=== PATIENT | female | born 1945 | race Caucasian/White ===

== ENCOUNTER 2022-07-03 09:06 | Day surgery (SDC) | payer MEDICARE, OTHER, SELFPAY ==
--- NOTE | 2022-06-29 14:00 | PT.OPEX ---
PT [place] Outpatient Eval PT [facility] Outpatient Eval Start: 06/29/22 13:00 Freq: Status: Active Protocol: Document 06/29/22 13:00 JASON (Rec: 06/29/22 13:17 JASON [id number]) E-signed By Dave Saucedo PT Physical Therapy Outpatient Evaluation Insurance Information Insurance Name Medicare B Medical Diagnosis Left knee OA Treating Diagnosis Left knee pain Referring MD Hammond Subjective Subjective Pt. reports having progressive left knee dysfunction from OA changes. She had her right hip replaced in January and has done well living indpe. at the [facility] in [facility]. She has an elevator to get to her one level home with everything including bedroom and laundry on same level. She ambulates without assistive device currently but it has gotten harder to walk any distance due to stiffness and pain. PMH includes right ERICA and HTN. Pain Comments 03/02 Date of Last Physician Visit 05/04/22 Current Work Status Retired Preferred Name Chris Precautions Therapy Limitations/Systems Review Not Limited Objective Range of Motion Full left knee ROM with 4/5 quad strength Swelling Mild left knee Balance & Gait Ambulation without device with mild limp Assessment Assessment/Impression Objectively, pt. demonstrates; good left knee AROM equal to right; 4/5 quad strength; mild limp during ambulation; 6/10 pain left knee during ambulation with generalized pain but also lateral thigh/ knee/leg pain; and core and general deconditioning. She would benefit from skilled therapy for one pre-op visit for education and instruction in post-operative protocol exercises along with post-op rehab per protocol working on restoring normal gait without assistive device. Primary Functional Limitations walking, squatting Plan of Care Rehabilitation Potential Excellent Physical Therapy Goals 1. Pt. will be indep. with HEP for self maintenance in 8 weeks. 2. Pt. will be able to walk without assistive device in 8 weeks. 3. Pt. will demonstrate improved quad and core strength in 8 weeks. 4. Pt. will demonstrate functional knee AROM to allow regular ADL's in 8 weeks. Coordination/Communication With Referral Source Treatment Plan/Direct Interventions Gait Training,Ice/Cold/ Vasopneumatic,Joint Mobilization,Manual Therapy, Neuromuscular Re-ed,Self-Care/ Home Management,Therapeutic Activities,Therapeutic Exercises Frequency/Duration 1 pre-op visit then 2 times a week after post-op re-eval on 07/10/22. Patient Will Be Discharged From Therapy Independent w/HEP, Independently Progressing Evaluation Billing Complexity Low Certification Information Initial Certification Date 06/29/22 Ending Certification Date 09/21/22 Provider Signature Shows Agreement With POC & Medical Necessity Physician Signature & Date Requested Please Sign/Date Here Physician Comment/Change : Physician NPI Number #
[2022-07-03] VITALS (23 sets, daily range): BP systolic 69–131; BP diastolic 49–69; PULSE 56–97; RESP 16–18; TEMP 36–37.5; O2SAT 94–100; BMI 2968.5
[2022-07-03] MEDS: LACTATED RINGERS 1000 ML 1,000 ML 100 ML IV (10:00)
[2022-07-03] MEDS: ACETAMINOPHEN 500 MG TABLET 1000 MG PO ×3 (10:00→21:47)
[2022-07-03] MEDS: OXYCODONE (CR) 10 MG TAB.ER.12H PO (10:00)
[2022-07-03] MEDS: CELECOXIB 200 MG CAPSULE PO ×2 (10:00→21:40)
[2022-07-03] MEDS: MIDAZOLAM HCL 1 MG/ML inj IVP (10:21)
[2022-07-03] MEDS: fentaNYL 100 MCG/2 ML inj IVP (10:21)
--- NOTE | 2022-07-03 10:54 | SUR.PREOP ---
TIME?OUT:?1020 PT/RN/MDA?VERIFICATION?OF?SURGICAL?SITE,?PROCEDURE,?AND?CONSENT OBTAINED?PRIOR?TO?INVASIVE?PROCEDURE.
[2022-07-03] MEDS: CEFAZOLIN 2 GM INJ IVP (10:58)
--- NOTE | 2022-07-03 11:12 | W.PM.NB ---
Nerve Block Nerve Block Date Seen: 07/03/22 Type of block requested by surgeon for post-operative analgesia: adductor canal Side: left Time out performed: Yes Verification of patient name: Yes Verification of date of : Yes Site marking: site marked Name of person performing procedure: Morteza Continuous monitoring Was continuous monitoring of O2 sat, B/P, machine tailer, recorded every 15 minutes?: Yes Procedure Checklist: sterile prep, needles and gloves Ultrasound guided. Images saved: Yes Medications given in 5ml increments after negative aspiration: Ropivicaine %: 0.5 mL: 20 Needle gauge: 20 Decadron (mg): 10 Precedex (mcg): 25 Patient tolerated procedure well: Yes Additional comments: Needle noted adjacent to nerve Block Charges Block Charge (with Pro Fee): Femoral Nerve Use of Ultrasound Machine for Block: Yes- US Guidance/pain block
--- NOTE | 2022-07-03 11:12 | W.PM.NB ---
Nerve Block Nerve Block Date Seen: 07/03/22 Type of block requested by surgeon for post-operative analgesia: geniculars Side: left Time out performed: Yes Verification of patient name: Yes Verification of date of : Yes Site marking: site marked Name of person performing procedure: Morteza Continuous monitoring Was continuous monitoring of O2 sat, B/P, traffic monitor specialist, recorded every 15 minutes?: Yes Procedure Checklist: sterile prep, needles and gloves Medications given in 5ml increments after negative aspiration: Ropivicaine %: 0.5 mL: 9 Needle gauge: 25 Patient tolerated procedure well: Yes Block Charges Block Charge (with Pro Fee): Genicular Nerve Block Use of Ultrasound Machine for Block: No
--- NOTE | 2022-07-03 11:57 | CRLHL7_ITS ---
For Patients: As a result of the Cures Act, medical imaging exams and procedure reports are released immediately into your electronic medical record. You may view this report before your referring provider. If you have questions, please contact your health care provider. INDICATION: Postoperative knee arthroplasty TECHNIQUE: Knee radiograph 2 views left COMPARISON: None FINDINGS: Bone: No acute fractures or aggressive bone lesions are identified. Joint: The patient is status post a total knee arthroplasty with patellar resurfacing. No significant knee effusion is seen. Soft tissue: Anterior skin, subcutaneous gas and joint gas are present from recent surgery. No radiopaque foreign bodies are seen. IMPRESSION: 1. There is an unremarkable postoperative appearance of the knee arthroplasty. Dictated by: Balwinder Womack MD @ 07/03/2022 13:43:48 (Electronically Signed)
--- NOTE | 2022-07-03 11:59 | PM.ORPRC ---
Procedure Note Date of procedure: 07/03/22 Procedure: SURGEON: Doug Hammond MD DISTRICT MANAGER: Lauryn Torres PA-C PREOPERATIVE DIAGNOSIS: Left knee osteoarthritis POSTOPERATIVE DIAGNOSIS: Left knee osteoarthritis NAME OF OPERATION: Left total knee arthroplasty ANESTHESIA: Spinal ESTIMATED BLOOD LOSS: 0 mL COMPLICATIONS: None SPECIMENS: None DRAINS: None PREOPERATIVE ANTIBIOTICS: Ancef 1 g IMPLANTS: 1. J&J Attune # 5 posterior stabilized femur 2. #4 fixed-bearing tibia 3. # 5 posterior stabilized, 5 mm fixed-bearing polyethylene 4. 38 patella INDICATIONS: The patient is a 77-year-old female with a longstanding history of severe, unrelenting left knee pain secondary to end-stage (grade IV) left knee osteoarthritis. Despite appropriate nonoperative management, including activity modification, anti-inflammatories, yijy-who-azubeiv pain medication, bracing, physical therapy, and injections they continue to have pain and disability. Operative intervention was offered. The risks, benefits and expected outcomes were discussed in detail. These included but were not limited to: Infection, bleeding, injury to blood vessel or nerve, venous thromboembolism. All questions were answered to their satisfaction. Use of an assistant executive housekeeper was necessary throughout the case for patient positioning and safety, soft tissue retraction, and closure. PROCEDURE: Spinal anesthesia was administered. The patient was placed supine on the operating table. The assistant executive housekeeper made sure the patient was positioned appropriately. The lower extremity was prepped and draped in the usual sterile fashion. The limb was exsanguinated with the Munir bandage. The pneumatic tourniquet was inflated to 300 mmHg. A standard anterior incision was made with the knee in flexion. Subcutaneous dissection was sharply taken through fascial layer #1. Full-thickness medial and lateral flaps were elevated. The assistant executive housekeeper retracted the soft tissues and protected them throughout the case. A standard medial parapatellar approach was made. The patella was everted. The infrapatellar fat pad was preserved. The menisci and cruciate ligaments were sharply d?brided. Marginal osteophytes were d?brided with the rongeur. The drill was used to penetrate the femoral canal. The canal was aspirated and irrigated with pulse lavage. The intramedullary femoral guide was placed for a 5-degree valgus cut, removing 10 mm off the distal femur. The saw was used to make the cut. Whitesides line and the trans epicondylar axis were marked. The femoral sizing guide was pinned onto the distal femur. Three degrees of external rotation nicely parallels the transepicondylar axis. Pins were placed for posterior referencing. The four-in-one cutting guide was pinned onto the distal femur. The anterior, posterior, and chamfer cuts were made. The assistant executive housekeeper protected the collateral ligaments. The box cutting guide was pinned. The box cuts were made. The boxed trial was placed and was an excellent fit. Drill holes for the lugs were made. Attention was then turned to the proximal tibia. The extramedullary tibial guide was placed for a neutral varus/valgus cut with 5 degrees of posterior slope, removing 1 mm based off the medial tibial surface. The assistant executive housekeeper protected the collateral ligaments and the neurovascular bundle. The saw was used to make the cut. Trial components were placed. The knee was nicely balanced in both flexion and extension. The trial components were removed. The tray was placed in appropriate rotation, parallel to our tibial cutting pins. It was pinned by the assistant executive housekeeper and the drill and the punch were used. The tray was removed. The punch was used again. We placed a bone plug in the femoral canal. Attention was then turned to the patella. [place] patellar thickness was 21 mm. The lobster claw resection guide was used with the 7.5 mm lili and the, guide used as an extra lili. The saw was used to make the cut. Drill holes were made by the assistant executive housekeeper. The trial was placed and was an excellent fit. Cancellous surfaces were irrigated with pulse lavage and thoroughly dried by the assistant executive housekeeper. We cemented the tibial component, then the femoral component. A trial spacer was placed. The knee was brought into full extension. We then cemented the patellar component. Excessive cement was removed. The cement was allowed to harden. We impacted the 5 mm polyethylene onto the tibial tray. The knee was taken through a range of motion and was found to be nicely balanced in both flexion and extension. The patella tracks centrally. The assistant executive housekeeper did a three minute dilute Betadine solution soak. The assistant executive housekeeper irrigated the wound with 3 liters of normal saline via pulse lavage. The assistant executive housekeeper reapproximated the extensor mechanism with #1 Vicryl in an interrupted cnyped-[id number] fashion. The assistant executive housekeeper then ran the extensor mechanism with a #1 PDO Stratafix. The assistant executive housekeeper closed the subcutaneous tissues with a 3-0 Stratafix and the skin with a running 3-0 Stratafix in a subcuticular fashion. Glue was used to seal the skin. The assistant executive housekeeper placed a dry dressing, ALESSANDRO stocking, and Polar Care. Sponge and needle counts were correct x2. The patient tolerated the procedure well. There were no apparent complications. They were carefully transferred to the hospital bed and taken to the postanesthesia care unit in satisfactory condition. PLAN: The patient will be mobilized with physical therapy. Aspirin will be used for DVT prophylaxis. They will be discharged to home once medically appropriate.
--- NOTE | 2022-07-03 12:51 | W.ANESCHARGE ---
Anesthesia Charges Start Date/Time Anesthesia Start Date: 07/03/22 Anesthesia Start Time: 10:42 Stop Date/Time Anesthesia Stop Date: 07/03/22 Anesthesia Stop Time: 12:48 Summary Emergency: No Extremes of Age: Over 70-CPT 29445
--- NOTE | 2022-07-03 13:17 | W.ANESCHARGE ---
Anesthesia Charges Start Date/Time Anesthesia Start Date: 07/03/22 Anesthesia Start Time: 10:42 Stop Date/Time Anesthesia Stop Date: 07/03/22 Anesthesia Stop Time: 12:48 Summary Emergency: No Extremes of Age: Over 70-CPT 80785
[2022-07-03] MEDS: LACTATED RINGERS 1000 ML 1,000 ML 75 ML IV (14:20)
--- NOTE | 2022-07-03 15:19 | PC.NURSE ---
Pt arrived to M/S room 257 s/p RTKA with Dr. Hammond via hospital bed with 2 assist at 1330. Settled by Fina Pantoja RN. Please see initial assessment from PACU and frequent post op VS. Adv. to regular diet. Bed alarm engaged. Dr. Aburto notified of low bp readings on arrival to floor. Report to Shannan Cummings RN for evening shift.
[2022-07-03 16:23] LABS: Sodium* 133 mmol/L (135-149)
[2022-07-03] MEDS: CEFAZOLIN 1 GM in 0.9 % SODIUM CHLORIDE Mini-bag 100 ML IVPB (18:11)
[2022-07-03] MEDS: OXYCODONE 5 MG TABLET PO ×2 (18:55→21:47)
--- NOTE | 2022-07-03 19:36 | PM.IMCN1 ---
Date of Consult Patient: Other ([place]) Consult date: 07/03/22 Requesting Physician: Orthopedics Primary Care Provider: Not a Local Provider, ELIANA Angulo, ChB Consult Narrative Reason for consult: Postoperative management of medical conditions Narrative: Chris Dean is a 77 year old woman with end-stage left gonarthrosis presents for elective total knee arthroplasty, which is undertaken successfully today without any complications. Underwent elective right total hip arthroplasty previously and tolerated well. No complications. Review of Systems Status of ROS: Reports: 10 or more systems reviewed and unremarkable except as noted in History and below Narrative: Up until recently has been fairly active. Enjoys outdoor activities in winter spring summer and fall. Has had to curtail her outdoor activities significantly over the last while due to her hip pain for which she underwent of right hip arthroplasty and then subsequently due to left knee pain. Attempted non operative interventions without success. Elected to proceed with total knee arthroplasty at this time. Denies angina, anginal equivalent, syncope, near syncope, nausea, vomiting, palpitations, diaphoresis, dyspnea at rest, paroxysmal nocturnal dyspnea, orthopnea. Denies claudication symptoms. States bowel and bladder function are satisfactory. No focal motor neurologic deficits. No recent trauma or injury. No recent travel. No recent fevers, rigors, diaphoresis. No recent illness. [facility] Medical History Chronic kidney disease Encounter for screening for severe acute respiratory syndrome coronavirus 2 (SARS-CoV-2) infection GERD (gastroesophageal reflux disease) Hyperlipidemia Hypertension Hypothyroidism Osteoarthritis of left knee Osteoarthritis of lumbar spine Synovial cyst of popliteal space [Gonzalez], left knee Tear of lateral meniscus of left knee Tear of medial meniscus of left knee Surgical History History of intraocular lens implant (~01/2021) Status post right hip replacement (02/08/22) Family History Brother History of open heart surgery High blood pressure Depression Sister High blood pressure Osteoarthritis Mother High blood pressure Osteoarthritis Father CHF (congestive heart failure) Social History Smoking Status: Never smoker Do you use any of these nicotine containing products: None How often do you have a drink containing alcohol: never AUDIT-C Alcohol total score: 0 Non-prescribed substance use: denies use Caffeine: Yes (coffee, 2 cup/day) Meds Home Medications and Allergies Home Medications Medication Instructions Recorded Confirmed Type acetaminophen 500 mg tablet 500 mg PO Q6H PRN 05/02/22 07/02/22 History amlodipine 5 mg tablet 5 mg PO DAILY 05/02/22 07/02/22 History atorvastatin 20 mg tablet 20 mg PO HS 05/02/22 07/02/22 History famotidine 10 mg tablet 10 mg PO BID 05/02/22 07/02/22 History hydrochlorothiazide 50 mg tablet 50 mg PO DAILY 05/02/22 07/02/22 History levothyroxine 75 mcg tablet 75 mcg PO DAILY 05/02/22 07/02/22 History losartan 100 mg tablet 100 mg PO HS 05/02/22 07/02/22 History polyvinyl alcohol-povidone (PF) 1 drp ophthalmic (eye) BID 05/02/22 07/02/22 History 1.4 %-0.6 % eye drops in a dropperette cholecalciferol (vitamin D3) 25 1,000 unit PO DAILY 07/02/22 07/02/22 History mcg (1,000 unit) capsule ibuprofen 200 mg capsule 600 mg PO Q6H PRN 07/02/22 07/02/22 History Allergies Allergy/AdvReac Type Severity Reaction Status Date / Time brimonidine Allergy Unknown Verified 05/02/22 09:25 Exam Narrative: Exam Narrative: No acute distress. Appears comfortable. Alert, oriented to self, place, time, situation. Friendly, articulate, cooperative. Mood and affect are congruent. Vision and hearing are grossly normal. Neck is supple, midline trachea, normal thyroid. No JVD, hepatojugular reflux, or carotid bruits. No lymphadenopathy. Lungs clear to auscultation without wheezing, rhonchi, or rales. Heart tones with regular rhythm, normal S1-S2, without murmur, gallop, or rub. Abdomen with active bowel sounds, soft, nontender. Moves all extremities already. No edema. Capillary refills less than 3 seconds. Skin is warm, dry, intact. Const: Vital Signs, click to edit/add: Vital Signs - 24 hr 07/03/22 10:00 07/03/22 10:20 07/03/22 10:25 Temperature 99.5 F Pulse Rate 70 59 L 62 Pulse Rate [Right Pulse Oximeter] Respiratory Rate 16 16 16 Blood Pressure 115/66 131/68 120/66 Blood Pressure [Ri ght Arm] Pulse Oximetry 99 100 100 Oxygen Delivery Me thod Room Air Nasal Cannula Nasal Cannula Oxygen Flow Rate 2 2 07/03/22 12:48 07/03/22 12:57 07/03/22 13:04 Temperature Pulse Rate 65 62 58 L Pulse Rate [Right Pulse Oximeter] Respiratory Rate 16 16 16 Blood Pressure 101/65 92/56 L 98/62 Blood Pressure [Ri ght Arm] Pulse Oximetry 96 95 100 Oxygen Delivery Me thod Room Air Room Air Room Air Oxygen Flow Rate 07/03/22 13:10 07/03/22 13:15 07/03/22 13:20 Temperature 97.2 F L Pulse Rate 60 61 58 L Pulse Rate [Right Pulse Oximeter] Respiratory Rate 16 16 16 Blood Pressure 110/67 99/64 99/67 Blood Pressure [Ri ght Arm] Pulse Oximetry 100 100 97 Oxygen Delivery Me thod Room Air Room Air Room Air Oxygen Flow Rate 2 2 2 07/03/22 13:24 07/03/22 13:35 07/03/22 13:45 Temperature 96.8 F L Pulse Rate 57 L 67 Pulse Rate [Right Pulse Oximeter] 97 Respiratory Rate 16 18 Blood Pressure 110/62 Blood Pressure [Ri ght Arm] 98/61 69/49 L Pulse Oximetry 97 Oxygen Delivery Me thod Room Air Room Air Room Air Oxygen Flow Rate 2 07/03/22 14:00 07/03/22 14:15 07/03/22 14:30 Temperature 96.8 F L Pulse Rate Pulse Rate [Right Pulse Oximeter] 56 L 58 L 62 Respiratory Rate 16 16 16 Blood Pressure Blood Pressure [Ri ght Arm] 89/60 L 105/69 113/54 L Pulse Oximetry 97 100 Oxygen Delivery Me thod Room Air Room Air Room Air Oxygen Flow Rate 07/03/22 16:08 Temperature 97.6 F Pulse Rate Pulse Rate [Right Pulse Oximeter] Respiratory Rate Blood Pressure Blood Pressure [Ri ght Arm] Pulse Oximetry Oxygen Delivery Me thod Oxygen Flow Rate Documenting provider has reviewed patient's vital signs: yes Labs Labs: BMP 07/03/22 16:03 Sodium 133 L Assessment and Plan Assessment and plan (1) Osteoarthritis of left knee: Status: Acute (2) Status post left knee replacement: Status: Acute (3) Hypertension: Status: Acute (4) Hyperlipidemia: Status: Acute (5) Hypothyroidism: Status: Acute Plan 1. Reviewed impression with patient. 2. Answered her questions. 3. Hold off on her antihypertension medications for now. 4. Agree with perioperative antibiotic prophylaxis. 5. Agree with postoperative venous thromboembolism prophylaxis. 6. Continue with other supportive interventions for hyperlipidemia and hypothyroidism. 7. Will follow with Orthopedic surgery as long as she is in the hospital. Should all go well with her efforts with physical and occupational therapy then I see no reason why she cannot be discharged home tomorrow if appropriate. 8. Patient agreeable to above stated plans and recommendations.
[2022-07-03] MEDS: ASPIRIN 81 MG TABLET EC PO (21:41)
[2022-07-03] MEDS: FAMOTIDINE 20 MG TABLET 10 MG PO (21:41)
[2022-07-03] MEDS: CARBOXYMETHYLCELLULOSE (REFRESH PLUS) TEARS 1 DROP EYE-BOTH (21:42)
--- NOTE | 2022-07-04 00:16 | PC.NURSE ---
Patient's dressing to left knee appears clean dry and intact. Cry-cuff is in place - Plexipulses on. Patient's pain managed with oxycodone PRN. Patient is hesitant to take this medication. Patient educated on the importance of pain management during her recovery. Tolerating a regular diet. Up to the BR with Assist of 1, walker and gait belt.
[2022-07-04 00:40] VITALS: BP 124/56; PULSE 67; RESP 14; TEMP 36.3; O2SAT 97
[2022-07-04] MEDS: CEFAZOLIN 1 GM in 0.9 % SODIUM CHLORIDE Mini-bag 100 ML IVPB ×2 (00:57→09:25)
[2022-07-04] MEDS: OXYCODONE 5 MG TABLET PO ×2 (03:40→11:34)
[2022-07-04 05:00] VITALS: BP 118/56; PULSE 66; RESP 16; TEMP 36.5; O2SAT 95
[2022-07-04] MEDS: LACTATED RINGERS 1000 ML 1,000 ML 75 ML IV (05:00)
[2022-07-04] MEDS: LEVOTHYROXINE 75 MCG TABLET PO (06:42)
--- NOTE | 2022-07-04 06:57 | PC.NURSE ---
END OF SHIFT NOTE: PT PLEASANT AND COOPERATIVE WITH CARES. VSS ON RA; AFEBRILE. PT AMBULATES WITH WALKER, GB, A1/SBA. LEFT KNEE DRESSING CDI. PT TOLERATING MOVEMENT WELL. PT ADMINISTERED PRN OXYCODONE FOR LEFT KNEE PAIN. OXY WAS EFFECTIVE. PT ORAL INTAKE ADEQUATE. VOIDING WELL. CRYO CUFF TO LEFT KNEE.
[2022-07-04 07:41] LABS: Basophils Percent Auto 0.1 % (0.0-3.0); Hematocrit 29.3 % (33.0-51.0); Immature Granulocytes Abs Auto 0.05 K/uL (0.00-0.30); Mean Corpuscular HGB Conc 34 gm/dL (32-36); Mean Corpuscular Hemoglobin 30 pg (26-34); Mean Corpuscular Volume 88 fL (80-100); Monocytes Percent Auto 8.8 % (0.0-11.0); Neutrophils Percent Auto 82.8 % (42.0-72.0); Platelet Count* 332 K/uL (140-440); RDW Coefficient of Variation % 12.5 % (11.5-15.5); Red Blood Count 3.34 m/uL (4.00-5.20); White Blood Count* 17.64 K/uL (4.50-11.00)
[2022-07-04 07:50] VITALS: BP 125/71; PULSE 66; RESP 16; TEMP 36.3; O2SAT 95
[2022-07-04 08:01] LABS: Potassium* 3.4 mmol/L (3.6-5.1); Sodium* 127 mmol/L (135-149)
[2022-07-04 08:02] LABS: Slide Review Reflex No
[2022-07-04 08:04] LABS: Creatinine* 0.6 mg/dL (0.5-1.5); Est. Creatinine Clearance* 49.76; Estimated Glomerular Filt Rate 92 ml/min; INR 1.08 (0.91-1.10); Prothrombin Time 14.4 Seconds
[2022-07-04 08:05] LABS: Blood Urea Nitrogen* 21 mg/dL (7-30)
--- NOTE | 2022-07-04 09:12 | PM.ORPN ---
Subjective Subjective Time Seen by Provider: 07:50 Date Seen: 07/04/22 Principal diagnosis: Left total knee arthroplasty Interval history: Margo is doing well this morning is comfortable at rest post knee replacement. She will discharge to home. She lives alone, however is very independent. She went home after her hip replacement and did well. Ortho Exam Narrative Exam Narrative: Alert and oriented x3. Patient is in no acute distress. Converses without labored breathing. Hearing is grossly intact. Examination of the left knee shows the dressing is intact. Mild soft tissue edema about the left knee. Bilateral calves are soft and nontender. CMS is intact left lower extremity. Able to easily flex and extend the knee in bed. She has good quad control. Const Vital Signs, click to edit/add: Vital Signs - 24 hr 07/03/22 10:00 07/03/22 10:20 07/03/22 10:25 Temperature 99.5 F Pulse Rate 70 59 L 62 Pulse Rate [Right Pulse Oximeter] Respiratory Rate 16 16 16 Blood Pressure 115/66 131/68 120/66 Blood Pressure [Right Arm] Pulse Oximetry 99 100 100 Oxygen Delivery Method Room Air Nasal Cannula Nasal Cannula Oxygen Flow Rate 2 2 07/03/22 12:48 07/03/22 12:57 07/03/22 13:04 Temperature Pulse Rate 65 62 58 L Pulse Rate [Right Pulse Oximeter] Respiratory Rate 16 16 16 Blood Pressure 101/65 92/56 L 98/62 Blood Pressure [Right Arm] Pulse Oximetry 96 95 100 Oxygen Delivery Method Room Air Room Air Room Air Oxygen Flow Rate 07/03/22 13:10 07/03/22 13:15 07/03/22 13:20 Temperature 97.2 F L Pulse Rate 60 61 58 L Pulse Rate [Right Pulse Oximeter] Respiratory Rate 16 16 16 Blood Pressure 110/67 99/64 99/67 Blood Pressure [Right Arm] Pulse Oximetry 100 100 97 Oxygen Delivery Method Room Air Room Air Room Air Oxygen Flow Rate 2 2 2 07/03/22 13:24 07/03/22 13:35 07/03/22 13:45 Temperature 96.8 F L Pulse Rate 57 L 67 Pulse Rate [Right Pulse Oximeter] 97 Respiratory Rate 16 18 Blood Pressure 110/62 Blood Pressure [Right Arm] 98/61 69/49 L Pulse Oximetry 97 Oxygen Delivery Method Room Air Room Air Room Air Oxygen Flow Rate 2 07/03/22 14:00 07/03/22 14:15 07/03/22 14:30 Temperature 96.8 F L Pulse Rate Pulse Rate [Right Pulse Oximeter] 56 L 58 L 62 Respiratory Rate 16 16 16 Blood Pressure Blood Pressure [Right Arm] 89/60 L 105/69 113/54 L Pulse Oximetry 97 100 Oxygen Delivery Method Room Air Room Air Room Air Oxygen Flow Rate 07/03/22 16:08 07/03/22 15:00 07/03/22 15:30 Temperature 97.6 F Pulse Rate Pulse Rate [Right Pulse Oximeter] 60 61 Respiratory Rate 16 16 Blood Pressure Blood Pressure [Right Arm] 121/59 L 113/61 Pulse Oximetry 99 99 Oxygen Delivery Method Room Air Room Air Oxygen Flow Rate 07/03/22 16:00 07/03/22 17:00 07/03/22 18:00 Temperature 97.6 F Pulse Rate Pulse Rate [Right Pulse Oximeter] 62 72 62 Respiratory Rate 16 16 16 Blood Pressure Blood Pressure [Right Arm] 96/57 L 114/58 L 107/56 L Pulse Oximetry 100 99 98 Oxygen Delivery Method Room Air Room Air Room Air Oxygen Flow Rate 07/03/22 19:00 07/03/22 20:00 07/04/22 00:40 Temperature Pulse Rate Pulse Rate [Right Pulse Oximeter] 71 70 67 Respiratory Rate 16 16 14 Blood Pressure Blood Pressure [Right Arm] 102/54 L 107/62 Pulse Oximetry 97 94 Oxygen Delivery Method Room Air Room Air Oxygen Flow Rate 07/04/22 00:40 07/04/22 05:00 Temperature 97.3 F L 97.7 F Pulse Rate Pulse Rate [Right Pulse Oximeter] 67 66 Respiratory Rate 14 16 Blood Pressure Blood Pressure [Right Arm] 124/56 L 118/56 L Pulse Oximetry 97 95 Oxygen Delivery Method Room Air Room Air Oxygen Flow Rate Assessment and Plan Assessment and plan (1) Osteoarthritis of left knee: Status: Acute (2) Status post left knee replacement: Problem details: Date of surgery 07/04/2022 Status: Acute Assessment and Plan: Plan for discharge is today to home if they meet discharge criteria. DVT prophylaxis includes aspirin 81 mg twice daily x1 month, Petr stockings x1 month may remove for 1 hr per day, frequent ambulation Remove dressing in 1 week. Observe wound and phone Orthopedics with any questions or concerns Return to clinic in 1 week for a wound check Return to clinic in [address] Hammond Minimize narcotic use. Wean off and discontinue soon as possible. Activities as tolerated. No strenuous activity. Outpatient physical therapy as scheduled. Ice and elevate the operative extremity. No restriction on ice. Margo needs no prescriptions from Orthopedics. She states she has oxycodone left over from her hip replacement. She has aspirin 81 mg and will take that twice a day for a month as we discussed. She also has Tylenol and senna at home. (3) Hypertension: Status: Acute (4) Hyperlipidemia: Status: Acute (5) Hypothyroidism: Status: Acute
[2022-07-04] MEDS: FAMOTIDINE 20 MG TABLET 10 MG PO (09:23)
[2022-07-04] MEDS: ASPIRIN 81 MG TABLET EC PO (09:24)
[2022-07-04] MEDS: SENNOSIDES 1 TAB TABLET 2 TAB PO (09:24)
[2022-07-04] MEDS: CELECOXIB 200 MG CAPSULE PO (09:24)
--- NOTE | 2022-07-04 09:52 | PC.SOCIAL ---
Met with pt in room. Pt states that she has assistance from a niece, neighbor, and friends at home while she is recovering. Pt states that she stocked up on all of her necessities and put everything within reach at home. Pt states that her home is all on one level so she is able to get around easily. Informed pt that she may reach out to the social work department at the [facility] if she is in need of more services.
[2022-07-04] MEDS: ACETAMINOPHEN 500 MG TABLET 1000 MG PO (10:31)
--- NOTE | 2022-07-04 13:19 | PC.NURSE ---
Pt eval by OT, PT, Alex TAMEZ and myself. Pt is impulsive and anxious to go home. Please see eMar for medications provided on day shift. Adequate I and O. Pt d/c instructions provided by Shannan Frias RN. Pt verbalized understanding of d/c diagnosis, home meds, pain management plan, f/up appts and sx to report urgently to MD. Discharged via w/c to own home with friend as transportation at 12:56 pm.
== END 2022-07-04 12:56 | disposition home or self-care (01) ==
LOC: OR 13:08 → MEDSURG 13:39
PROVIDERS: Visit Provider Orthopaedic Surgery
PROC: (CPT 27447; principal; 2022-07-03 11:00)
DX: M17.12 Unilateral primary osteoarthritis, left knee (principal); I12.9 Hypertensive chronic kidney disease with stage 1 through stage 4 chronic kidney disease, or unspecified chronic kidney disease; N18.9 Chronic kidney disease, unspecified; K21.9 Gastro-esophageal reflux disease without esophagitis; Z96.641 Presence of right artificial hip joint; E03.9 Hypothyroidism, unspecified; E78.5 Hyperlipidemia, unspecified
CPT/HCPCS: 27447; 01402; 36415; 64447; 64454; 73560; 76942; 82565; 84132; 84295; 84520; 85025; 85610; 97110; 97116; 97161; 97165; 97535; 99100; A9270; C1776; J0690; J1100; J2250; J2370; J2704; J2795; J3010; J7120

== ENCOUNTER 2022-07-19 13:00 | Outpatient (RCR) | payer MEDICARE, OTHER, SELFPAY ==
--- NOTE | 2022-07-10 15:01 | PT.OPEX ---
PT [place] Outpatient Eval PT [facility] Outpatient Eval Start: 07/10/22 14:09 Freq: Status: Active Protocol: Document 06/29/22 14:13 JASON (Rec: 07/10/22 14:48 JASON [id number]) E-signed By Dave Saucedo PT Physical Therapy Outpatient Evaluation Insurance Information Insurance Name Medicare B Medical Diagnosis Left knee OA Treating Diagnosis Left knee pain Referring MD Hammond Subjective Subjective Pt. reports having progressive left knee dysfunction from OA changes. She had her right hip replaced in January and has done well living indep at the [facility] in [facility]. She has an elevator to get to her one level home with everything including laundry and bedroom on same level. She ambulates without assistive device currently but it has gotten harder to walk any distance due to stiffness and pain. PMH includes right ERICA and HTN. Pain Comments 6 Date of Last Physician Visit 05/04/22 Date of Surgery (If applicable) 07/03/22 Current Work Status Retired Objective Range of Motion Full left knee ROM with 4/5 quad strength Strength 4/5 quad strength Swelling Mild left knee Balance & Gait Ambulation without device with mild limp Assessment Assessment/Impression Objectively, pt. demonstrates; good left knee AROM equal to right side; 4/5 quad strength; mild limp during ambulation; 6/10 pain left knee during ambulation with generalized pain but also lateral thigh/ knee/leg pain; and core deconditioning. She would benefit from skilled therapy for one pre-op visit for education and instruction in post-operative protocol exercises along with post-op protocol working on restoring normal gait without assistive device. Primary Functional Limitations walking, squatting Plan of Care Rehabilitation Potential Excellent Physical Therapy Goals 1. Pt. will be indep. with HEP for self maintenance in 8 weeks. 2. Pt. will be able to walk without a limp in 8 weeks. 3. Pt. will demonstrate improved quad and core strength in 8 weeks. 4. Pt. will demonstrate functional knee AROM to allow regular ADL's in 8 weeks. Coordination/Communication With Referral Source Treatment Plan/Direct Interventions Gait Training,Ice/Cold/ Vasopneumatic,Joint Mobilization,Manual Therapy, Neuromuscular Re-ed,Self-Care/ Home Management,Therapeutic Activities,Therapeutic Exercises Frequency/Duration 1 pre-op visit then 2 times a week after post-op re-eval on 07/10/22. Patient Will Be Discharged From Therapy Independent w/HEP, Independently Progressing Evaluation Billing Complexity Low Certification Information Initial Certification Date 06/29/22 Ending Certification Date 09/21/22 Provider Signature Shows Agreement With POC & Medical Necessity Physician Signature & Date Requested Please Sign/Date Here Physician Comment/Change : Physician NPI Number #
== END 2022-10-26 14:30 | disposition home or self-care (01) ==
PROVIDERS: Visit Provider Orthopaedic Surgery
DX: M17.12 Unilateral primary osteoarthritis, left knee (principal); Z51.89 Encounter for other specified aftercare
CPT/HCPCS: 97110; 97161; 97164; 97535

== ENCOUNTER 2022-12-04 10:40 | Outpatient (CLI) | payer MEDICARE, OTHER, SELFPAY | END 2022-12-04 10:41 | disposition home or self-care (01) | LOC: INJ CL 10:41 | PROVIDERS: PCP Orthopaedic Surgery; Visit Provider Family Medicine | DX: M54.16 Radiculopathy, lumbar region (principal); M51.36 Other intervertebral disc degeneration, lumbar region | CPT/HCPCS: 62323; J0702; Q9966 ==

== ENCOUNTER 2022-12-31 07:30 | Outpatient (RCR) | payer MEDICARE, OTHER, SELFPAY ==
--- NOTE | 2022-10-26 16:56 | PT.OPEX ---
PT [place] Outpatient Eval PT [facility] Outpatient Eval Start: 10/26/22 15:35 Freq: Status: Active Protocol: Document 10/26/22 15:35 KEV (Rec: 10/26/22 15:38 KEV [id number]) E-signed By Gaby Hickman DPT Physical Therapy Outpatient Evaluation Insurance Information Recert Due Date 01/24/23 Insurance Name Medicare B Medical Diagnosis lumbar DDD Treating Diagnosis LBP, core/hip/glut weakness, limited tolerance for extended sitting/standing/walking Subjective Subjective Patient reports LBP for the last 2-3 months. Reports onset last Jul when she was bending over and she felt a pop in her LB. Ongoing pain since. Reports dx of osteopenia. Recent xrays showed severe OA in her back. Patient was given a packet of handouts from her MD at [facility] to perform for her back. She has them with her today and reports they are going well, she is getting them in regularly. Sleep has been ok. Pain/sx are worst in the morning. States she wakes up stiff, tight, and sore with pain up to 8/10. Once she is up moving around, pain/sx decrease. Pain range 2-8/10. She is using tylenol 2x/day. Icy/hot ointment 1-2x/day. States she is using the heating pad all the time. Patient reports hx of R ERICA last January and L TKA last Jun ( 2021). She is going to the pool for an exercise group 2x/ week, walking regularly, doing yoga. Patient stays very active. She is hoping to review her current exercises and get few PT treatments with plan of continuing with her home program. Date of Last Physician Visit 10/22/22 Precautions Treatment Precautions/Contraindications s/p R ERICA January 2022, s/p L TKA Jun 2022 Assessment Assessment/Impression Patient is a 77 year old female with LBP, core/hip/glut weakness, limited tolerance for extended sitting/standing/ walking. Pain range 2-8/10. Trunk ROM is WFL. Patient is able to demonstrate many of her current home exercises and has a packet of pictures she is already doing in her home program. She c/o tightness, stiffness, pain in the mornings. This tends to loosen up with movement, exercise, activity, time. Patient with hx of R ERICA last January and L TKA last Jun (2021). She is scheduled to see Dr Degroot for a consult next week. Patient would benefit from skilled PT for pain/sx management, posture/body mechanics training, core/hip/ glut strengthening, and establishment of HEP. Plan of Care Rehabilitation Potential Good Physical Therapy Goals 1. Decrease LBP to less than/ equal to 4/10 with daily activities and with the progression of PT activities over the next 4-6 weeks. 2. Patient will be educated on posture/body mechanics and pain management strategies over the next 4-6 weeks for decreased stress on LB, improved spinal stabilization, and decreased LBP. 3. Improve core/hip/glut strength and posture over the next 8-10 weeks for improved posture, decreased stress on LB, improved spinal stabilization, and decreased LBP. 4. Patient will be I with HEP within 8-10 weeks for progression toward above goals, ongoing self management of pain/sx, ongoing self improvements in core/hip/glut strength, posture/body mechanics, and for improved tolerance for daily activities and extended sitting/standing /walking. Coordination/Communication With Referral Source Treatment Plan/Direct Interventions Manual Therapy,Therapeutic Exercises Frequency/Duration 1x/week Patient Will Be Discharged From Therapy Completion of LTG(s),Skills Plateau,Independent w/HEP, Independently Progressing Evaluation Billing Untimed Code Treatment Minutes 20 Complexity Moderate Certification Information Initial Certification Date 10/26/22 Ending Certification Date 01/24/23 Provider Signature Shows Agreement With POC & Medical Necessity Physician Signature & Date Requested Please Sign/Date Here Physician Comment/Change : Physician NPI Number #
== END 2023-04-11 23:59 | disposition home or self-care (01) ==
PROVIDERS: PCP Orthopaedic Surgery; Visit Provider Physician Assistant Surgical
DX: M51.36 Other intervertebral disc degeneration, lumbar region (principal); Z51.89 Encounter for other specified aftercare
CPT/HCPCS: 97110; 97140; 97162

== ENCOUNTER 2023-06-04 12:23 | Outpatient (CLI) | payer MEDICARE, OTHER, SELFPAY | END 2023-06-04 12:24 | disposition home or self-care (01) | LOC: INJ CL 12:25 | PROVIDERS: Visit Provider Family Medicine | DX: M51.36 Other intervertebral disc degeneration, lumbar region (principal); M54.16 Radiculopathy, lumbar region | CPT/HCPCS: 62323; J0702; Q9966 ==

== ENCOUNTER 2023-11-08 14:17 | Outpatient (CLI) | payer MEDICARE, OTHER, SELFPAY | END 2023-11-08 14:18 | disposition home or self-care (01) | LOC: INJ CL 14:18 | PROVIDERS: PCP Internal Medicine; Visit Provider Family Medicine | DX: M51.36 Other intervertebral disc degeneration, lumbar region (principal); M54.16 Radiculopathy, lumbar region | CPT/HCPCS: 62323; J0702; Q9966 ==

== ENCOUNTER 2025-02-24 08:53 | Outpatient (CLI) | payer MEDICARE, OTHER, SELFPAY ==
--- NOTE | 2025-02-24 09:15 | MR_ITS ---
EXAM: MRI of the RIGHT KNEE, without contrast CLINICAL: Right knee pain. Evaluate for medial meniscal tear. COMPARISONS: X-rays 01/25/2025. TECHNICAL: Multiplanar multisequence MRI of the right knee was obtained. SEDATION: None. CONTRAST: None. FINDINGS: Ligaments: ACL: Intact and unremarkable. PCL: Intact and unremarkable. MCL: Intact and unremarkable. LCL: Intact and unremarkable. Posterolateral corner: Popliteus, biceps femoris, iliotibial band, and the popliteofibular ligament appear intact. Posteromedial corner: Semimembranosus, pes anserine tendons and posterior oblique ligament appear intact. Extensor mechanism: Patellar tendon: Intact, without tendinopathy. Quadriceps tendon: Intact, without tendinopathy. Retinacula: Medial and lateral retinacula are intact. Fat pads: Unremarkable infrapatellar Hoffa's, quadriceps and prefemoral fat pads. Patellofemoral joint: Patella: There is full-thickness chondral loss involving the medial patellar facet and patellar median ridge with adjacent subchondral reactive marrow edema. Deep chondral fissuring and small segment of deep chondral delamination involves the lateral patellar facet on axial series 4 image 12 with adjacent subchondral reactive marrow edema. Trochlea: There is grade 2-3 chondral loss involving the medial trochlea. Medial compartment: Medial meniscus: There is horizontal dominant complex tearing throughout the posterior horn extending into the posterior root with complex tearing also seen to extend into the body segment on sagittal series 6 images 18-23 and coronal series 8 image 17-20. There is mild displacement of torn meniscal tissue along the peripheral undersurface of the body segment on coronal series 8 image 17-18. Medial cartilage: There is high-grade/full-thickness loss involving the weightbearing medial femoral condyle on coronal series 8 images 15-17. Small segment of high-grade chondral loss with adjacent focal osteophyte formation involving the posterior nonweightbearing medial femoral condyle on sagittal series 6 image 22. Medial tibial plateau cartilage is maintained. Lateral compartment: Lateral meniscus: There is mild ill-defined fraying/tearing involving the free edge of the posterior horn extending into the junction with the body on sagittal series 6 images 10-11. No meniscal displacement. Lateral cartilage: No significant chondromalacia. Knee joint: Effusion: Physiologic right knee effusion. Intra-articular bodies:?No convincing bodies identified. Popliteal cyst: Very small. Bones: There is minimal reactive marrow edema involving the peripheral posterior medial plateau adjacent to the medial meniscus. No evidence of acute fracture. IMPRESSION: 1. Tearing of the medial meniscus as above with displacement of torn meniscal tissue along the peripheral undersurface of the body segment. 2. Mild ill-defined fraying/tearing involving the free edge of the posterior horn extending into the junction with the body segment lateral meniscus. 3. Chondral loss involving the patellofemoral compartment and medial femoral condyle as above. 4. No evidence of ligamentous injury or fracture. JCZ Electronically signed on 02/24/2025 10:42:00 AM by Giovanny Kearney D.O.
== END 2025-02-24 08:54 | disposition home or self-care (01) ==
LOC: MRI 08:56
PROVIDERS: PCP Internal Medicine; Visit Provider Orthopaedic Surgery
DX: M25.561 Pain in right knee (principal); S83.221A Peripheral tear of medial meniscus, current injury, right knee, initial encounter; S83.281A Other tear of lateral meniscus, current injury, right knee, initial encounter
CPT/HCPCS: 73721

== ENCOUNTER 2025-03-02 07:44 | Outpatient (CLI) | payer MEDICARE, OTHER, SELFPAY | END 2025-03-02 07:45 | disposition home or self-care (01) | LOC: INJ CL 07:45 | PROVIDERS: PCP Internal Medicine; Visit Provider Family Medicine | DX: M54.16 Radiculopathy, lumbar region (principal); M51.369 Other intervertebral disc degeneration, lumbar region without mention of lumbar back pain or lower extremity pain | CPT/HCPCS: 62323; J0702; Q9966 ==

== ENCOUNTER 2025-03-22 11:49 | Outpatient (CLI) | payer MEDICARE, OTHER, SELFPAY ==
--- OUTSIDE RECORDS SUMMARY | 2021-02-08 09:00 | XMS_ITS | Encounter Summary ---
Author Organization [facility] Address [address] [place] [address] Care Team Providers Care Title I Teacher Name Role Phone Lui Matamoros M.D. Primary Care Provider [phone] Reason for Referral * Outpatient (Routine) - Closed Specialty Diagnoses / Procedures Referred By Contac t Referred To Contact Diagnoses Varicose Vein Lower Extremity Left Procedures US Endovenous Ablation Giovanny Gomez M.D. Phone: tel: fax[facility] Region Referral ID Status Reason Start Date Expiration Date Visits Re quested Visits Authorized [id number] Closed 01/19/2021 01/19/2022 1 1 Reason for Visit * Outpatient (Routine) - Closed Specialty Diagnoses / Procedures Referred By Contac t Referred To Contact Diagnoses Varicose Vein Lower Extremity Left Procedures US Endovenous Ablation Giovanny Gomez M.D. Phone: tel: fax: [facility] Region Referral ID Status Reason Start Date Expiration Date Visits Re quested Visits Authorized [id number] Closed 01/19/2021 01/19/2022 1 1 Encounter Details Date Type Department Care Team (Latest Contact Info) Description 02/08/2021 9:00 AM CDT Hospital Encounter Department of Radiology in [place], [place] [address] [place] [phone] [place] [phone] Varicose Vein Lower Extremity Left Social History Tobacco Use Types Packs/Day Years Used Date Smoking Tobacco: Never Smokeless Tobacco: Never Comments:Second hand smoke a s a child Alcohol Use Standard Drinks/Week Comments Yes 0 (1 standard drink = 0.6 oz pure alcohol) About once every 2-3 months may have a glass of wine. [facility] Utilities Answer Date Recorded In the past 12 months has e [place], gas, oil, or water [email or web address] threatened to shut off services in your home? No 03/11/2025 Humiliation, Afraid, Rape, and Kick questionnair e Answer Date Recorded Within the last year, have y ou been afraid of your partner or ex-partner? No 03/16/2025 Within the last year, have y ou been humiliated or emotionally abused in other ways by your partner or ex-partner? No Within the last year, have y ou been kicked, hit, slapped, or otherwise physically hurt by your partner or ex-partner? No 03/16/2025 Within the last year, have y ou been raped or forced to have any kind of sexual activity by your partner or ex-partner? No 03/16/2025 Hunger Vital Sign Answer Date Recorded Within the past 12 months, y ou worried that your food would run out before you got the money to buy more. Never true 03/11/20 25 Within the past 12 months, t he food you bought just didn't last and you didn't have money to get more. Never true 03/11/2025 PRAPARE - Transportation Answer Date Re corded In the past 12 months, has l ack of transportation kept you from medical appointments or from getting medications? No 02/21 In the past 12 months, has l ack of transportation kept you from meetings, work, or from getting things needed for daily living? No 03/11/2025 Housing Stability Answer Date Recorded What is your living situation today? I have a [facility] place to live 03/11/2025 Education Answer Date Recorded What is the highest level of school you have completed or the highest degree you have received? Bachelor's degree (e.g., BA, AB, BS) 04/25/2019 Comments No Sex and Gender Information Value Date Recorded Sex Assigned at Female 07/27/2017 6:11 AM CDT Legal Sex Female 10:24 AM CDT Gender Identity Female 07/27/2017 6:11 AM CDT Sexual Orientation Straight 07/27/2017 6: 11 AM CDT documented as of this encounter Functional Status * Q1: How often do you have a drink containing alcohol? 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 [address] [phone] 04/30/2025 11:00 AM CDT Nurse Only Department of Family Medicine, [facility], in [address] [phone] Marianela Keita M.D. [address] [place] [phone] 06/07/2025 1:00 PM CDT Ancillary Procedure Department of Ophthalmology in [place], [place] [address] [place] [phone] Hamlet Espinoza M.D. [address] [place] [phone] documented as of this encounter Procedures Procedure Name Priority Date/Time Associated Diagnosis Comments US ENDOVENOUS ABLATION RAD - Routine (most inpatients and all outpatients) 02/08/2021 10:02 AM CDT Varicose Vein Lower Extremity Left documented in this encounter Results * US Endovenous Ablation (02/08/2021 10:02 AM CDT) Narrative [address] - 02/08/2021 10:03 AM CDT This exam does not require a radiologist review or interpretation. Please refer to the patient's medical record on this date for clinical details. us Giovanny Gomez M.D. 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 NPAmarjit: [phone] PCP - General Internal Medicine 01/21/20 03/08/21 documented as of this encounter
--- OUTSIDE RECORDS SUMMARY | 2025-03-09 09:56 | XMS_ITS | Encounter Summary ---
Author Organization [facility] Address [address] [place] [address] Care Team Providers Care Ambulance Driver Name Role Phone Marianela Keita M.D. Primary Care Provider [phone] Encounter Details Date Type Department Care Team (Latest Contact Info) Description 03/09/2025 9:56 AM CDT - 03/09/2025 11:59 PM CDT Hospital Encounter Department of Laboratory Medicine in [place], [place] [address] [place] [phone] Marianela Keita M.D. [address] [place] [phone] Hypertensive Chronic Kidney Disease With Stage 1 Through Stage 4 Chronic Kidney Disease, Or Unspecified Chronic Kidney Disease; Hyperlipidemia; Hypothyroidism On Replacement Discharge Disposition: Home or Self Care Social History Tobacco Use Types Packs/Day Years Used Date Smoking Tobacco: Never Smokeless Tobacco: Never Comments:Second hand smoke a s a child Alcohol Use Standard Drinks/Week Comments Yes 0 (1 standard drink = 0.6 oz pure alcohol) About once every 2-3 months may have a glass of wine. [facility] Utilities Answer Date Recorded In the past 12 months has e [employer], gas, oil, or water [employer] threatened to shut off services in your home? No 03/09/2025 Humiliation, Afraid, Rape, and Kick questionnair e Answer Date Recorded Within the last year, have y ou been afraid of your partner or ex-partner? No 03/16/2024 Within the last year, have y ou been humiliated or emotionally abused in other ways by your partner or ex-partner? No Within the last year, have y ou been kicked, hit, slapped, or otherwise physically hurt by your partner or ex-partner? No 03/16/2024 Within the last year, have y ou been raped or forced to have any kind of sexual activity by your partner or ex-partner? No 03/16/2024 Hunger Vital Sign Answer Date Recorded Within the past 12 months, y ou worried that your food would run out before you got the money to buy more. Never true 03/09/20 25 Within the past 12 months, t he food you bought just didn't last and you didn't have money to get more. Never true 03/09/2025 PRAPARE - Transportation Answer Date Re corded In the past 12 months, has l ack of transportation kept you from medical appointments or from getting medications? No 02/21 In the past 12 months, has l ack of transportation kept you from meetings, work, or from getting things needed for daily living? No 03/09/2025 Housing Stability Answer Date Recorded What is your living situation today? I have a [facility] place to live 03/09/2025 Education Answer Date Recorded What is the [...] AM CDT documented as of this encounter Medications at Time of Discharge acetaminophen (TYLENOL) 500 mg tablet Take 500 mg by mouth every 6 (six) hours as needed for pain. alendronate (Fosamax) 70 mg tablet TAKE 1 TABLET BY MOUTH EVERY 7 DAYS WITH 8OZ OF WATER, ON AN EMPTY STOMACH. SIT UPRIGHT FOR 30MINS 12 tablet 3 01/25/2025 betamethasone dipropionate (for_DIPROLENE) 0.05 % cream Apply 1 application topically daily. 45 g 3 10/02/2017 calcium carbonate-vitamin D3 (Calcium 500 With D) 500 mg-10 mcg (400 unit) tabletIndications: osteoporosis Take 1 tablet by mouth 2 (two) times a day Indications: osteoporosis, a condition of weak bones. carboxymethylcellu lose (REFRESH TEARS) 0.5 % ophthalmic solution 1 drop 2 (two) times a day as needed for dry eyes. clobetasoL (TEMOVATE) 0.05 % ointment Apply 1 Application topically as needed. 08/30/2023 famotidine (for_PEPCID) 10 mg tablet Take 20 mg by mouth daily. 06/13/2017 ibuprofen (ADVIL,MOTRIN) 200 mg capsule Take 600 mg by mouth every 6 (six) hours as needed for pain. amLODIPine (Norvasc) 5 mg tablet Take 1 tablet (5 mg total) by mouth daily. 90 tablet 3 03/16/2024 5 atorvastatin (Lipitor) 20 mg tablet TAKE 1 TABLET BY MOUTH EVERY DAY IN THE EVENING 90 tablet 3 10/05/2024 5 hydroCHLOROthiazid e (HydroDiuril) 50 mg tablet TAKE 1 TABLET BY MOUTH EVERY DAY 90 tablet 3 10/26/2024 5 levothyroxine 75 mcg tablet Take 1 tablet (75 mcg total) by mouth every morning before breakfast. 90 tablet 3 03/16/2024 5 losartan (Cozaar) 100 mg tabletIndications: Hypertension Essential Primary TAKE 1 TABLET BY MOUTH EVERY DAY IN THE EVENING 90 tablet 3 10/05/2024 5 nitrofurantoin (Macrodantin) 50 mg capsule Take 50 mg by mouth. 5 documented as of this encounter Plan of Treatment Upcoming Encounters Date Type Department Care Team (Latest Contact Info) Description 04/30/2025 10:40 AM CDT Appointment Department of Laboratory Medicine in [address] [place] [phone] Marianela Keita M.D. [address] [facility] [place] [phone] 04/30/2025 11:00 AM CDT Nurse Only Department of Family Medicine, [facility], in [place], [place] [address] [place] [phone] Marianela Keita M.D. [address] [place] [phone] 06/07/2025 1:00 PM CDT Ancillary Procedure Department of Ophthalmology in [place], [place] [address] [place] [address] Hamlet Espinoza M.D. [address], [place] [phone] documented as of this encounter Procedures Procedure Name Priority Date/Time Associated Diagnosis Comments LIPID PANEL, S Routine 03/09/2025 10:32 AM CDT Hyperlipidemia THYROID-STIMULATING HORMONE-SENSITIVE (S-TSH) Routine 03/09/2025 10:32 AM CDT Hypothyroidism On Replacement BASIC METABOLIC PANEL, S/P Routine 03/09/2025 10:32 AM CDT Hypertensive Chronic Kidney Disease With Stage 1 Through Stage 4 Chronic Kidney Disease, Or Unspecified Chronic Kidney Disease documented in this encounter Results * S-TSH (Thyroid-Stimulating Hormone - Sensitive) (03/09/2025 10:32 AM CDT) TSH, Sensitive 2.5 0.3 - 4.2 mIU/L 03/09/2025 1:58 PM CDT OWAT Blood (Blood, Venous) 03/09/2025 10:32 AM CDT 03/09/2025 1:18 PM CDT us Marianela Keita M.D. LAB BLOOD ADD-ON Final Resu lt [facility] [address] [place] [address], [facility] OWAT [facility] in [address] [place] [address] * Lipid Panel (03/09/2025 10:32 AM CDT) Triglycerides 55 mg/dL 03/09/2025 1:58 PM CDT OWAT Comment: ----REFERENCE VALUE---- Normal: <150 mg/dL Borderline High: 150-199 mg/dL High: 200-499 mg/dL Very High: > or =500 mg/dL Cholesterol, Total 147 mg/dL 2024 1:58 PM CDT OWAT Comment: ----REFERENCE VALUE---- Desirable: < 200 mg/dL Borderline High: 200 - 239 mg/dL High: > or = 240 mg/dL Cholesterol, LDL, Calculated 70 mg/dL 03/09/2025 1:58 PM CDT OWAT Comment: ----REFERENCE VALUE---- Desirable: <100 mg/dL Above Desirable: 100-129 mg/dL Borderline High: 130-159 mg/dL High: 160-189 mg/dL Very High: >=190 mg/dL ----ADDITIONAL INFORMATION---- LDL cholesterol calculated using the Ramirez/NIH equation. Cholesterol, HDL 65 >=50 mg/dL 03/09/20 1:58 PM CDT OWAT Cholesterol, Non-HDL, Calculated 82 mg/dL 03/09/2025 1:58 PM CDT OWAT Comment: ----REFERENCE VALUE---- Desirable: <130 mg/dL Above Desirable: 130-159 mg/dL Borderline High: 160-189 mg/dL High: 190-219 mg/dL Very High: > or =220 mg/dL Fasting (8 HR or more) No 03/09/2025 10:32 AM CDT OWAT Blood (Blood, Venous) 03/09/2025 10:32 AM CDT 03/09/2025 1:19 PM CDT us Marianela Keita M.D. LAB BLOOD ADD-ON Final Resu lt [facility] [address] [place] [address], [place] [facility] in [place] [address] [place] [address] * (ABNORMAL) Basic Metabolic Panel (03/09/2025 10:32 AM CDT) Potassium, P 3.9 3.6 - 5.2 mmol/L 03/09/2025 1:58 PM CDT OWAT Sodium, P 130(L) 135 - 145 mmol/L 03/09/2025 1:58 PM CDT OWAT Chloride, P 95(L) 98 - 107 mmol/L 03/09/2025 1:58 PM CDT OWAT Bicarbonate, P 26 22 - 29 mmol/L 03/09/2025 1:58 PM CDT OWAT Anion Gap, P 9 7 - 15 03/09/2025 1:58 PM CDT OWAT BUN (Blood Urea Nitrogen), P 29(H) 6 - 21 mg/dL 03/09/2025 1:58 PM CDT OWAT Creatinine 0.78 0.59 - 1.04 mg/dL 03/09/2025 1:58 PM CDT OWAT Estimated GFR (eGFR) 77 >=60 mL/min/BSA 03/09/2025 1:58 PM CDT OWAT Comment: Estimated GFR calculated using the 2020 CKD_EPI creatinine equation. Calcium, Total, P 9.3 8.8 - 10.2 mg/dL 03/09/2025 1:58 PM CDT OWAT Glucose, P 89 70 - 140 mg/dL 03/09/2025 1:58 PM CDT OWAT Blood (Blood, Venous) 03/09/2025 10:32 AM CDT 03/09/2025 1:19 PM CDT us Marianela Keita M.D. LAB BLOOD ADD-ON Final Resu lt [facility] [address] [place] [address], [place] [facility] in [place] [address] [place] [address] documented in this encounter Visit Diagnoses Diagnosis Hypertensive Chronic Kidney Disease With Stage 1 Through Stage 4 Chronic Kidney Disease, Or Unspecified Chronic Kidney Disease Hyperlipidemia Hypothyroidism On Replacement documented in this encounter Additional Health Concerns Assessment Noted Time PHQ-9 Depression Total Score: 0 07/09/20 19 9:57 AM CDT documented as of this encounter Care Teams Ambulance Driver Relationship Specialty Start Date End Date Marianela Keita M.D. [address] [place] [phone] PCP - General Internal Medicine 05/30/23 Dr. Degroot Electronics Assembler Physician Orthopedic Surgery 03/16/24 documented as of this encounter
--- OUTSIDE RECORDS SUMMARY | 2025-03-09 09:56 | XMS_ITS | Encounter Summary ---
Author Organization [facility] Address [address] [place] [id number] Care Team Providers Care Rn Hemo Dialysis Name Role Phone Marianela Keita M.D. Primary Care Provider [phone] Reason for Referral * Outpatient (Routine) - Closed Specialty Diagnoses / Procedures Referred By Gloria zhang Referred To Contact Diagnoses Screening Mammogram Breast Cancer Procedures BI Breast Screening Bilateral with Tomosynthesis Marianela Keita M.D. [address] [place] [phone] Phone: tel: fax: [facility] Region Referral ID Status Reason Start Date Expiration Date Visits Re quested Visits Authorized [id number] Closed 12/02/2024 03/04/2026 1 1 Reason for Visit * Outpatient (Routine) - Closed Specialty Diagnoses / Procedures Referred By Gloria zhang Referred To Contact Diagnoses Screening Mammogram Breast Cancer Procedures BI Breast Screening Bilateral with Tomosynthesis Marianela Keita M.D. [address] [place] [address] Phone: tel: fax: [facility] Region Referral ID Status Reason Start Date Expiration Date Visits Re quested Visits Authorized [id number] Closed 12/02/2024 03/04/2026 1 1 Encounter Details Date Type Department Care Team (Latest Contact Info) Description 03/09/2025 9:56 AM CDT - 03/09/2025 11:59 PM CDT Hospital Encounter Department of Radiology in [place], [place] [address] [facility] [place] [phone] Marianela Keita M.D. [address] [facility] [place] [address] Screening Mammogram Breast Cancer Discharge Disposition: Home or Self Care Social History Tobacco Use Types Packs/Day Years Used Date Smoking Tobacco: Never Smokeless Tobacco: Never Comments:Second hand smoke a s a child Alcohol Use Standard Drinks/Week Comments Yes 0 (1 standard drink = 0.6 oz pure alcohol) About once every 2-3 months may have a glass of wine. [facility] [email or web address] Answer Date Recorded In the past 12 months has e [employer], gas, oil, or water [employer] threatened to shut off services in your [...] your living situation today? I have a [facility] place to live 03/09/2025 Education Answer Date [...] by mouth daily. 90 tablet 3 03/16/2024 atorvastatin (Lipitor) 20 mg tablet TAKE 1 [...] CDT Appointment Department of Laboratory Medicine in [address] [phone] Marianela Keita M.D. [address] [place] [phone] 04/30/2025 11:00 AM CDT Nurse Only Department of Family Medicine, [facility], in [address] [phone] Marianela Keita M.D. [address] [place] [phone] 06/07/2025 1:00 PM CDT Ancillary Procedure Department of Ophthalmology in [place], [place] [address] [place] [phone] Hamlet Espinoza M.D. [address] [place] [phone] documented as of this encounter Procedures Procedure Name Priority Date/Time Associated Diagnosis Comments BI BREAST SCREENING BILATERAL WITH TOMOSYNTHESIS RAD - Routine (most inpatients and all outpatients) 03/09/2025 10:11 AM CDT Screening Mammogram Breast Cancer documented in this encounter Results * BI Breast Screening Bilateral with Tomosynthesis (03/09/2025 10:11 AM CDT) Anatomical Region Laterality Modality Breast, Breast Imaging RST L OS, Breast Imaging ARZ LOS, Breast Imaging FLA LOS Bilateral Mammography Impressions 03/09/2025 11:30 AM CDT Negative. RECOMMENDATION: Annual Screening Mammogram ASSESSMENT: BI-RADS: 1: Negative. Narrative 03/09/2025 11:30 AM CDT EXAM: BI BREAST SCREENING BILATERAL WITH TOMOSYNTHESIS Current study was evaluated with a Computer Aided Detection (CAD) system. INDICATION: Screening mammogram. COMPARISON: Prior exam(s) were available and reviewed for comparison. DENSITY: b. There are scattered areas of fibroglandular density. FINDINGS: No mammographic findings of malignancy. Procedure Note Ortega Lima M.D. - 03/09/2025 EXAM: BI BREAST SCREENING BILATERAL WITH TOMOSYNTHESIS Current study was evaluated with a Computer Aided Detection (CAD) system. INDICATION: Screening mammogram. COMPARISON: Prior exam(s) were available and reviewed for comparison. DENSITY: b. There are scattered areas of fibroglandular density. FINDINGS: No mammographic findings of malignancy. IMPRESSION: Negative. RECOMMENDATION: Annual Screening Mammogram ASSESSMENT: BI-RADS: 1: Negative. Marianela Keita M.D. IMG BI PROCEDURES Final Res ult documented in this encounter Visit Diagnoses Diagnosis Screening Mammogram Breast Cancer documented in this encounter Additional Health Concerns Assessment Noted Time PHQ-9 Depression Total Score: 0 07/09/20 19 9:57 AM CDT documented as of this encounter Care Teams Rn Hemo Dialysis Relationship Specialty Start Date End Date Marianela Keita M.D. [address] [place] [phone] PCP - General Internal Medicine 05/30/23 Dr. Degroot Music Library Assistant Physician Orthopedic Surgery 03/16/24 documented as of this encounter
--- OUTSIDE RECORDS SUMMARY | 2025-03-16 09:00 | XMS_ITS | Encounter Summary ---
Author Organization [facility] Address [address] [place] [address] Care Team Providers Care Director Nurses' Registry Name Role Phone Marianela Keita M.D. Primary Care Provider [phone] Reason for Referral * Outpatient (Routine) - Authorized Specialty Diagnoses / Procedures Referred By Contac t Referred To Contact Diagnoses Polyp Colon Adenomatous Personal History Marianela Keita M.D. [address] [place] [address] Phone: tel: fax: [facility] [address] [place] [address] Phone: tel: fax: Referral ID Status Reason Start Date Expiration Date Visits Requested Visits Authorized [id number] Authorized Patient Preference 03/16/2025 09/15/2026 1 1 * Outpatient (Routine) - Authorized Specialty Diagnoses / Procedures Referred By Contac t Referred To Contact [facility] Marianela Keita M.D. [address] [place] [address] Phone: tel: fax: [facility] Referral ID Status Reason Start Date Expiration Date V isits Requested Visits Authorized [id number] Authorized 03/16/2025 09/15/2026 1 1 * Outpatient (Routine) - Authorized Specialty Diagnoses / Procedures Referred By Gloria zhang Referred To Contact Diagnoses Hypertensive Chronic Kidney Disease With Stage 1 Through Stage 4 Chronic Kidney Disease, Or Unspecified Chronic Kidney Disease Marianela Keita M.D. [address] [place] [phone] Phone: tel: fax: [facility] Referral ID Status Reason Start Date Expiration Date V isits Requested Visits Authorized [id number] Authorized 03/16/2025 09/15/2026 1 1 Reason for Visit * Reason Comments Annual Exam AWV * Outpatient (Routine) - Closed Specialty Diagnoses / Procedures Referred By Gloria zhang Referred To Contact [facility] Internal Medicine Marianela Keita M.D. [address] [place] [phone] Phone: tel: fax: [facility] Referral ID Status Reason Start Date Expiration Date Visits Re quested Visits Authorized [id number] Closed 03/16/2024 09/15/2025 1 1 Encounter Details Date Type Department Care Team (Latest Contact Info) Description 03/16/2025 9:00 AM CDT Office Visit Department of Internal Medicine in [place], [place] [address] [place] [phone] Marianela Keita M.D. 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 [facility] Utilities Answer Date Recorded In the past 12 months has th e [employer], gas, oil, or water company threatened to shut off services in your [...] your living situation today? I have a [facility] place to live 03/11/2025 Education Answer [...] AM CDT documented as of this encounter Last Filed Vital Signs Vital Sign Reading Time Taken Comments Blood Pressure 119/75 03/16/2025 8:44 AM CDT Pulse 62 03/16/2025 8:44 AM CDT Temperature 36.1 C (97 F) 03/16/2025 8:44 AM CDT Respiratory Rate 16 03/16/2025 8:44 AM CDT Oxygen Saturation 99% 03/16/2025 8:44 AM CDT Inhaled Oxygen Concentration - - Weight 65.7 kg (144 lb 13.5 oz) 03/16/2025 8:44 AM CDT Height 152 cm (4' 11.84) 03/16/2025 8:44 AM CDT Body Mass Index 28.44 03/16/2025 8:44 AM CDT documented in this encounter Patient Instructions * Patient Instructions* Marianela Keita M.D. - 03/16/2025 9:00 AM CDT I want you to discontinue the hydrochlorothiazide. You should increase the amlodipine to 10 mg oncea day. You can use up your 5 mg tablets by taking 2 of them at the same time. When those are used up, you should switch to taking 1 of the 10 mg tablets daily. I sent a prescription for this dose to your pharmacy in [place]. You should return to the clinic for a recheck of your sodium level and a nurse blood pressure checkwhen you return from your trip. Please check with [facility] to make sure that your tetanus booster is up to date. You need to schedule your colonoscopy at the [facility]. Please tell them you got a referral from me. I have sent a prescription for the colonoscopy prep to your pharmacy. I recommend that you perform monthly self breast exams, wear a seatbelt regularly, avoid texting while driving, change batteries in your smoke and carbon monoxide detectors at least annually, exercise regularly and eat a diet with plenty of fruits and vegetables. Please see me again in 1 year and contact the clinic with any questions. * Attachments The following attachments cannot be sent through Care Everywhere. * VIDEO: THREE STEPS TO BETTER SLEEP (PORTUGUESE) documented in this encounter Progress Notes * Marianela Keita M.D. - 03/16/2025 9:00 AM CDT DATE OF VISIT: 03/16/2025 SUBJECTIVE CHIEF COMPLAINT / REASON FOR VISIT Chris Dean is a 79 y.o. female who presents for evaluation of Annual Exam (AWV). The patient verbally consented to an audio recording of their visit to assist with the completion of documentation. History of Present Illness Chris Dean is a 79 year old female who presents for an annual checkup and to review recent blood work. She is concerned that this showed a low sodium level. She has been taking hydrochlorothiazide for blood pressure management and was not aware this medication could contribute to her low sodium level. Her sodium levels have been intermittently low in thepast, with readings of 132 and 131. Her recent level was 130. She tries to drink plenty of water but is cautious about overhydration. She also takes amlodipine 5 mg daily and losartan 100 mg daily for blood pressure management. Her recent blood pressure reading was 119/75. She tolerates these medications without difficulty and has not had problems with lower extremity edema. She follows a MIND diet, which is a combination of Mediterranean and DASH diets, to maintain her health. She used to be very active but has reduced her activity level with age. She tries to walk every day and does exercises to manage her arthritis, which affects her back, hips, knees, neck, and other areas. She has had hip and knee replacement in the past. She has not experienced exertional chestdiscomfort or dyspnea. She has a history of osteoporosis and is currently taking Fosamax (alendronate) once a week, which she started last year. She tolerates it well despite initial concerns that it might worsen her acid reflux. She has a family history of type 2 diabetes, with her youngest brother having from complications related to the disease and another brother recently diagnosed with prediabetes. She is reassured that her own blood sugar level is normal. She experiences sleep disturbances, often waking up every two hours to use the bathroom. She occasionally uses melatonin to aid sleep but is cautious about regular use. She practices relaxation techniques before bed. She has a history of diverticulosis and last had a colonoscopy in June 2016 when she was still in [place]. This report has been obtained and is reviewed with her. It revealed a hyperplastic polyp and a sessile serrated adenomatous polyp in the cecum. She has not had a follow-up colonoscopy since moving to [place]. She has a history of squamous cell carcinoma, with multiple lesions removed over the past two years. She undergoes regular dermatological checks every six months. She had a back injection performed earlier this month for her chronic back pain and that has provided some relief. PAST MEDICAL HISTORY 1. Hypertension. 2. Hyperlipidemia. 3. Hypothyroidism. 4. GERD. 5. Osteoporosis. 6. Degenerative arthritis in several locations including the spine, knees, hips and hands. 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 7. Status post cholecystectomy. 8. History of diverticulosis. 9. History of squamous cell carcinoma of the skin. OBJECTIVE VITAL SIGNS BP 119/75 (BP Location: Right arm, Patient Position: Sitting, Cuff Size: Regular) Pulse 62 Temp36.1 ??C (Temporal) Resp 16 Ht 152 cm Wt 65.7 kg LMP (LMP Unknown) SpO2 99% BMI 28.44 kg/m?? Physical Exam Physical Exam General: Alert, adult female with normal speech, in no acute distress. Skin: Warm and dry, no jaundice. Peripheral Vessels: Radial and dorsalis pedis pulses 2+ bilaterally. Heart: Regular rate and rhythm with normal S1 and S2, no murmurs. Lungs: Clear to auscultation bilaterally. No wheezes, crackles or rhonchi. Abdomen: Soft, active bowel sounds, nondistended, nontender. Extremities: Warm. No cyanosis, clubbing or pitting edema. Gait: Normal. NEURO: Face symmetric and she moves all 4 extremities equally. No focal deficits. ASSESSMENT / PLAN #1 Hypertensive Chronic Kidney Disease With Stage 1 Through Stage 4 Chronic Kidney Disease, Or Unspecified Chronic Kidney Disease #2 Hyponatremia Her blood pressure is well controlled with the current medications, although the hydrochlorothiazide appears to be causing hyponatremia. Recommend she discontinue hydrochlorothiazide. She will increase the amlodipine to 10 mg daily and will continue taking losartan 100 mg daily. Recommend she return for a nurse blood pressure check and repeat sodium level in 2 weeks. She is counseled that amlodipine can cause lower extremity edema. If she experiences this and it is very bothersome, she will contact the clinic. 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 #4 Hyperlipidemia Her lipids are controlled with the atorvastatin and this will be continued. Plan to recheck lipids in 1 year. #5 Osteoporosis She has been taking alendronate for the past year and tolerates this well. Recommend she complete a5 year course of this medication. This will be complete in February 2029. She will continue to work on getting regular weight-bearing exercise as well as getting adequate calcium and vitamin-D intake. #6 Gastroesophageal Reflux Disease She uses famotidine 1-2 times per day and is aware of which foods to avoid in order to control her symptoms. #7 Hypothyroidism On Replacement Her recent TSH was normal and she will continue taking levothyroxine as prescribed. Plan to rechecka TSH in 1 year. #8 Healthcare maintenance She believes her tetanus booster is up-to-date and will check with the pharmacy to verify this. Shehad a negative mammogram last week. She should have a colonoscopy because of the history of sessileserrated adenoma. She is counseled about this. #9 Polyp Colon Adenomatous Personal History Recommend that she undergo a colonoscopy because of the history of precancerous polyp. This is ordered today. She prefers to have this performed in [place] if possible. #10 Follow up Plan to see her in 1 year or sooner if there are concerns. documented in this encounter Plan of Treatment Upcoming Encounters Date Type Department Care Team (Latest Contact Info) Description 04/30/2025 10:40 AM CDT Appointment Department of Laboratory Medicine in [address] [phone] Marianela Keita M.D. [address] [place] [address] 04/30/2025 11:00 AM CDT Nurse Only Department of Family Medicine, [facility], in [address] [place] [address] Marianela Keita M.D. [address] [place] [address] 06/07/2025 1:00 PM CDT Ancillary Procedure Department of Ophthalmology in [place], [place] [address] [place] [address] Hamlet Espinoza M.D. [address] [place] [address] Scheduled Orders Name Type Priority Associated Diagnoses Orde r Schedule Sodium Lab Routine Hyponatremia Expected: 03/30/2025, Expires: 06/16/2026 Basic Metabolic Panel Lab Routine Hypertensive Chronic Kidney Disease With Stage 1 Through Stage 4 Chronic Kidney Disease, Or Unspecified Chronic Kidney Disease Expected: 03/16/2026, Expires: 06/16/2026 Glucose, Fasting Lab Routine Screening Examination Diabetes Mellitus Expected: 03/16/2026, Expires: 06/16/2026 S-TSH (Thyroid-Stimulating Hormone - Sensitive) Lab Routine Hypothyroidism On Replacement Expected: 03/16/2026, Expires: 06/16/2026 Lipid Panel Lab Routine Hyperlipidemia Expected: 03/16/2026, Expires: 06/16/2026 Scheduled Referrals Name Type Priority Associated Diagnoses Orde r Schedule Primary Care nurse visit (clinic) - [facility]; BP check; BP check only (ART HISTORY INSTRUCTOR) Outpatient Referral Routine Hypertensive Chronic Kidney Disease With Stage 1 Through Stage 4 Chronic Kidney Disease, Or Unspecified Chronic Kidney Disease Expected: 03/30/2025, Expires: 06/16/2026 [facility] office visit (clinic) Outpatient Referral Routine Expected: 03/16/2026 (Approximate), Expires: 06/16/2026 documented as of this encounter Visit Diagnoses Diagnosis Hypertensive Chronic Kidney Disease With Stage 1 Through Stage 4 Chronic Kidney Disease, Or Unspecified Chronic Kidney Disease- Primary Hyponatremia 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 [address] [phone] PCP - General Internal Medicine 05/30/23 Dr. Degroot Grocery Carrier Physician Orthopedic Surgery 03/16/24 documented as of this encounter
--- OUTSIDE RECORDS SUMMARY | 2025-03-16 09:30 | XMS_ITS | Encounter Summary ---
Author Organization [facility] Address [address] [place] [address] Care Team Providers Care Burrer Machine Name Role Phone Marianela Keita M.D. Primary Care Provider [phone] Reason for Referral * Outpatient (Routine) - Authorized Specialty Diagnoses / Procedures Referred By Gloria zhang Referred To Contact Marianela Keita M.D. [address], [place] [address] Phone: tel: fax: [facility] Referral ID Status Reason Start Date Expiration Date V isits Requested Visits Authorized [id number] Authorized 03/16/2025 09/15/2026 1 1 Scheduling Instructions 12-Month Medicare Visit Reason for Visit * Reason Comments Medicare Annual Wellness Visit Subsequen t * Outpatient (Routine) - Closed Specialty Diagnoses / Procedures Referred By Contac t Referred To Contact Marianela Keita M.D. [address], [place] [address] Phone: tel: fax: [facility] Referral ID Status Reason Start Date Expiration Date Visits Re quested Visits Authorized [id number] Closed 03/16/2024 09/15/2025 1 1 Encounter Details Date Type Department Care Team (Late st Contact Info) Description 03/16/2025 9:30 AM CDT Office Visit Department of Internal Medicine in [place], [place] [address] [place] [address] Marianela Keita M.D. [address] [place] [address] Mary Lou Bangura R.N. Annual Medicare Examination Return (Primary Dx) Social History Tobacco Use Types Packs/Day Years Used Date Smoking Tobacco: Never Smokeless Tobacco: Never Comments:Second hand smoke a s a child Alcohol Use Standard Drinks/Week Comments Yes 0 (1 standard drink = 0.6 oz pure alcohol) About once every 2-3 months may have a glass of wine. [facility] [employer] Answer Date Recorded In the past 12 months has e [employer], gas, oil, or water [employer] threatened to shut off services in your [...] have a [facility] place to live 03/11/2025 Education Answer Date [...] AM CDT documented as of this encounter Progress Notes * Mary Lou Bangura R.N. - 03/16/2025 9:30 AM CDT HEALTH ASSESSMENT Reason For Visit Patient presents with Medicare Annual Wellness Visit Subsequent Face to Face The following portions of the patient's history were reviewed and updated as appropriate: allergies, medications, family history, social history, surgical history and care team/suppliers. VITALS Blood Pressure: 119/75 (03/16/2025 8:44 AM) Temperature: 36.1 ??C (03/16/2025 8:44 AM) Temp Source: Temporal (03/16/2025 8:44 AM) Pulse Rate: 62 (03/16/2025 8:44 AM) Resp Rate: 16 (03/16/2025 8:44 AM) BMI (Calculated): 28.4 kg/m?? (03/16/2025 8:44 AM) SpO2: 99 % (03/16/2025 8:44 AM) Height: 152 cm (03/16/2025 8:44 AM) Weight: 65.7 kg (03/16/2025 8:44 AM) Health Risk Assessment and Social Drivers of Health Health Risk Assessment (HRA) completed and reviewed: Yes Social Drivers of Health (SDOH) questionnaires were reviewed during this visit. The following concerns were prioritized to be addressed: No concerns identified. On average, how many days per week do you engage in moderate to strenuous exercise (like a brisk walk)? 3 days On average, how many minutes do you engage in exercise at this level? 20 min Do you use extra virgin olive oil as your main source of fat in your diet? yes Do you have a regular dentist that you see at least once a year for a check-up? yes Eats 3-5 servings of fruits and vegetables daily Spent 3 minutes reviewing the SDMA questionnaire responses with the patient. Depression Screening PHQ-2 Score: (Patient-Rptd) 0 Cognitive Assessment Cognitive function assessed by direct observation without concerns. Current Opioid Use None Education regarding non-opioid options for pain management not applicable at this time. FUNCTIONAL/HOME ENVIRONMENT History of falls: Have you fallen within the last year or do you fear you might fall?: No (03/16/2025 8:42 AM) Do you use an assisted device to walk? (Walker, cane, wheelchair, crutch): No (03/16/2025 8:42 AM) Today, do you feel any of the following? Weak, dizzy, shaky, or unsteady?: No (03/16/2025 8:42 AM) Have you taken any medication within the last 6 hours which may make you feel drowsy? Such as sleep, pain, or anxiety medication: No (03/16/2025 8:42 AM) Home Safety Patient's home contains the following: Throw Rugs Yes. Discussed that these can be a fall hazard. Adequate lighting: Yes. Slippery bathtub and/or shower surfaces: No. Grab bars installed in the bathroom: Yes. Handrails on steps/stairs: Not applicable. Patient has no steps/stairs within the home, including at the entry point(s). Functional smoke/carbon monoxide alarms: Yes. Patient is reminded to change the batteries every 6 months if device is not A/C powered or hard-wired into the home. Advance Directive Advance Directives: Not Received Advance directive completed previously but patient does not have a copy on file in our system. Patient/family is instructed to bring in a copy and/or upload to a patient portal message for scanning to the chart. Preventive Services Schedule Health Maintenance Topic Date Due DTaP,Tdap,and Td Vaccines (1 - Tdap) 05/25/2021 COVID-19 Vaccine ( season) 2025 Visit: Chronic Disease, age 18+ 03/16/2025 Visit: Medicare Annual Wellness 03/17/2025 Creatinine Level (Kidney Function Test) 03/09/2026 Potassium Level 03/09/2026 Thyroid Stimulating Hormone (TSH) test for thyroid function 03/09/2026 Sodium Level 03/09/2026 Office Visit for Blood Pressure Check / Re-check 03/16/2026 Depression Screening (Annual PHQ-2) Completed Fall Risk Screen (Annual) Completed RSV vaccine - (32-36 weeks) or 60+ years Completed Pneumococcal vaccine (50+ years) Completed Influenza Vaccine Completed Hepatitis C Screening Completed Zoster Vaccines Completed IPV Vaccines Aged Out Colorectal Cancer Surveillance Discontinued Mammogram Discontinued Plans to update Tdap at local pharmacy. After Visit Summary (AVS) reviewed and patient will access via patient online services documented in this encounter Plan of Treatment Upcoming Encounters Date Type Department Care Team (Latest Contact Info) Description 04/30/2025 10:40 AM CDT Appointment Department of Laboratory Medicine in [address] [phone] Marianela Keita M.D. [address] [place] [phone] 04/30/2025 11:00 AM CDT Nurse Only Department of Family Medicine, [facility], in [address] [phone] Marianela Keita M.D. [address] [place] [address] 06/07/2025 1:00 PM CDT Ancillary Procedure Department of Ophthalmology in [place], [place] [address] [place] [phone] Hamlet Espinoza M.D. [address] [place] [phone] Scheduled Referrals Name Type Priority Associated Diagnoses Orde r Schedule Primary Care nurse visit (clinic) - [facility]; Medicare Annual Wellness Outpatient Referral Routine Expected: 03/17/2026 (Approximate), Expires: 06/16/2026 documented as of this encounter Visit Diagnoses Diagnosis Annual Medicare Examination Return- Primary documented in this encounter Additional Health Concerns Assessment Noted Time PHQ-9 Depression Total Score: 0 07/09/20 19 9:57 AM CDT documented as of this encounter Care Teams Burrer Machine Relationship Specialty Start Date End Date Marianela Keita M.D. [address] [place] [address] PCP - General Internal Medicine 05/30/23 Dr. Degroot Meteorological Technician Physician Orthopedic Surgery 03/16/24 documented as of this encounter
--- NOTE | 2025-03-22 12:58 | P.ANES_ITS ---
Anesthesia Charges Start Date/Time Anesthesia Start Date: 03/22/25 Anesthesia Start Time: 12:18 Stop Date/Time Anesthesia Stop Date: 03/22/25 Anesthesia Stop Time: 12:54 Summary Extremes of Age - Over 70 or under 1: SIDE PANEL HANGER Coding CPT Codes CPT Codes: RONNIE LWR INTST NDSC NOS - 89872 ([id number]) P2 - PATIENT W/MILD SYST DISEASE, QX - SIDE PANEL HANGER SVC W/ MD MED DIRECTION, QK - DIRECTOR OF PARTNER MARKETING 2-4 CNCRNT ANES PROC Additional Codes: Summary - Extremes of Age - Over 70 or under 1: SIDE PANEL HANGER ([id number])
--- NOTE | 2025-03-22 12:58 | W.ANESCHARGE ---
Anesthesia Charges Start Date/Time Anesthesia Start Date: 03/22/25 Anesthesia Start Time: 12:18 Stop Date/Time Anesthesia Stop Date: 03/22/25 Anesthesia Stop Time: 12:54 Summary Extremes of Age - Over 70 or under 1: VELVET WEAVER Coding CPT Codes CPT Codes: RONNIE LWR INTST NDSC NOS - 14107 ([id number]) P2 - PATIENT W/MILD SYST DISEASE, QX - VELVET WEAVER SVC W/ MD MED DIRECTION, QK - STRAIGHT TRUCK DRIVER 2-4 CNCRNT ANES PROC Additional Codes: Summary - Extremes of Age - Over 70 or under 1: VELVET WEAVER ([id number])
--- NOTE | 2025-03-22 13:01 | P.ANES_ITS ---
Anesthesia Charges Start Date/Time Anesthesia Start Date: 03/22/25 Anesthesia Start Time: 12:18 Stop Date/Time Anesthesia Stop Date: 03/22/25 Anesthesia Stop Time: 12:54 Summary Extremes of Age - Over 70 or under 1: MDA Coding CPT Codes CPT Codes: ANES LWR INTST NDSC NOS - 23661 ([id number]) P2 - PATIENT W/MILD SYST DISEASE, QK - ENVIRONMENTAL TECHNICAL OFFICER 2-4 CNCRNT ANES PROC, QX - MARKETING INSTRUCTOR SVC W/ MD MED DIRECTION Additional Codes: Summary - Extremes of Age - Over 70 or under 1: MDA ([id number])
--- NOTE | 2025-03-22 13:01 | W.ANESCHARGE ---
Anesthesia Charges Start Date/Time Anesthesia Start Date: 03/22/25 Anesthesia Start Time: 12:18 Stop Date/Time Anesthesia Stop Date: 03/22/25 Anesthesia Stop Time: 12:54 Summary Extremes of Age - Over 70 or under 1: MDA Coding CPT Codes CPT Codes: ANES LWR INTST NDSC NOS - 36375 ([id number]) P2 - PATIENT W/MILD SYST DISEASE, QK - PROGRAM MANAGEMENT SPECIALIST 2-4 CNCRNT ANES PROC, QX - HAT MENDER SVC W/ MD MED DIRECTION Additional Codes: Summary - Extremes of Age - Over 70 or under 1: MDA ([id number])
--- OUTSIDE RECORDS SUMMARY | 2025-03-23 02:24 | XMS_ITS | Clinical Summary ---
Author Organization [facility] Address [address] [place] [address] Care Team Providers Care Gas Meter Repairer Name Role Phone Marianela Keita M.D. Primary Care Provider [phone] Source Comments Patient records contain information from all sites at [facility]. For routine questions regarding patient records, call [phone] during business hours, M-F 8:00 AM - 5:00 PM Central Time. Record requests for emergency care only can be directed to [phone] at any time.[facility] Allergies Active Allergy Reactions Criticality Noted Date Comments Brimonidine Other (see comments) 06/13/2017 Redness Medications * This document contains information received from the source organization and may not represent a complete record from that organization. famotidine (for_PEPCID) 10 mg tablet Take 20 mg by mouth daily. 06/13/20 17 Active betamethasone dipropionate (for_DIPROLENE) 0.05 % cream Apply 1 application topically daily. 45 g 3 10/02/19 18 Active acetaminophen (TYLENOL) 500 mg tablet Take 500 mg by mouth every 6 (six) hours as needed for pain. Active carboxymethylce llulose (REFRESH TEARS) 0.5 % ophthalmic solution 1 drop 2 (two) times a day as needed for dry eyes. Active ibuprofen (ADVIL,MOTRIN) 200 mg capsule Take 600 mg by mouth every 6 (six) hours as needed for pain. Active clobetasoL (TEMOVATE) 0.05 % ointment Apply 1 Application topically as needed. 08/30/20 23 Active calcium carbonate-vitam in D3 (Calcium 500 With D) 500 mg-10 mcg (400 unit) tabletIndicatio ns:osteoporosis Take 1 tablet by mouth 2 (two) times a day Indications: osteoporosis, a condition of weak bones. Active alendronate (Fosamax) 70 mg tablet TAKE 1 TABLET BY MOUTH EVERY 7 DAYS WITH 8OZ OF WATER, ON AN EMPTY STOMACH. SIT UPRIGHT FOR 30MINS 12 tablet 3 01/26/20 25 Active amLODIPine (Norvasc) 10 mg tablet Take 1 tablet (10 mg total) by mouth daily. 90 tablet 3 03/16/20 25 Active levothyroxine 75 mcg tablet Take 1 tablet (75 mcg total) by mouth daily before morning meal. 90 tablet 3 03/16/20 25 Active losartan (Cozaar) 100 mg tablet Take 1 tablet (100 mg total) by mouth daily. 90 tablet 3 03/16/20 25 Active atorvastatin (Lipitor) 20 mg tablet Take 1 tablet (20 mg total) by mouth daily. 90 tablet 3 03/16/20 25 Active polyethylene glycol-electrol ytes (Golytely) 236-22.74-6.74 -5.86 gram solution Take first portion of the prep at 4pm the evening before and start second portion 3 to 6 hours before and finish 2 hours prior to report time. 4000 mL 03/16/20 25 Active chlorthalidone (HYGROTON) 25 mg tablet Take 1 tablet (25 mg total) by mouth daily. 90 tablet 3 11/14/19 21 2020 Discontinued amLODIPine (Norvasc) 5 mg tablet Take 1 tablet (5 mg total) by mouth daily. 90 tablet 3 03/16/20 24 2024 Discontinued(R eorder) levothyroxine 75 mcg tablet Take 1 tablet (75 mcg total) by mouth every morning before breakfast. 90 tablet 3 03/16/20 24 2024 Discontinued(R eorder) nitrofurantoin (Macrodantin) 50 mg capsule Take 50 mg by mouth. 2024 Discontinued losartan (Cozaar) 100 mg tabletIndicatio ns:Hypertension Essential Primary TAKE 1 TABLET BY MOUTH EVERY DAY IN THE EVENING 90 tablet 3 10/05/19 25 2024 Discontinued(R eorder) atorvastatin (Lipitor) 20 mg tablet TAKE 1 TABLET BY MOUTH EVERY DAY IN THE EVENING 90 tablet 3 10/05/19 25 2024 Discontinued(R eorder) hydroCHLOROthia zide (HydroDiuril) 50 mg tablet TAKE 1 TABLET BY MOUTH EVERY DAY 90 tablet 3 10/26/19 25 2024 Discontinued Active Problems Patient Care Coordination No te Formatting of this note migh t be different from the original. 12/26/2017- Patient declines filling out a release of information at this time. 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 It was suggested to start Fosamax weekly. Combined Forms Age Related Cataract Bilateral Hyperlipidemia 04/12/2018 Snoring 12/06/2017 Hypertensive Chronic Kidney Disease With Stage 1 Through Stage 4 Chronic Kidney Disease, Or Unspecified Chronic Kidney Disease 10/02/2017 Hypothyroidism On Replacement 07/18/2017 Gain Weight 07/04/2017 Hemorrhoids External 07/04/2017 Hemorrhoids Internal 07/04/2017 Hyalosis Asteroid Left 07/04/2017 Keratosis Seborrheic 07/04/2017 Eczema 06/13/2017 Gastroesophageal Reflux Disease 06/13/2017 Glaucoma 06/13/2017 Keratosis Actinic 06/13/2017 Loss Hearing Bilateral 06/13/2017 Resolved Problems Problem Noted Date Diagnosed Date Resolved Date Cyst Gonzalez's Left 03/05/2023 03/05/2023 03/15/2023 Influenza Due To Other Ident ified Influenza Virus With Other Respiratory Manifestations 03/05/2023 03/05/2023 03/15/2023 Other Tear Medial Meniscus C urrent Injury Left Knee Initial 03/05/2023 03/05/2023 03/16/2024 Polyarthralgia 08/30/2021 03/15/2023 Non-Pressure Chronic Ulcer O f Other Part Of Right Lower Leg With Fat Layer Exposed 06/03/2018 1 09/26/2018 Overview (06/03/2018): Right anterior farr. Status post excision of SCC at [facility] office Body Mass Index 28.0 To 28.9 Adult 06/03/2018 03/15/2023 High Risk Medication 04/12/2018 023 Osteopenia 04/12/2018 03/15/2023 Periodic Limb Movement Disorder 12/26/2017 03/16/2024 Elevated Thyroid Stimulating Hormone 07/18/2017 03/15/2023 Murmur Systolic 07/18/2017 03/16/2024 Hypersomnia 07/04/2017 03/15/2023 Restless Leg Syndrome 07/04/20172023 Primary Osteoarthritis Knee Left 06/13/2017 03/15/2023 Polyp Colon Personal History , Unspecified Type 06/13/2017 03/16/2024 Encounters Date Type Department Care Team Description 03/16/2025 9:30 AM CDT Office Visit Department of Internal Medicine in [place], [place] [address] [phone] Marianela Keita M.D. Pritzl, Megan G, RStaceyNStacey Annual Medicare Examination Return (Primary Dx) 03/16/2025 9:00 AM CDT Office Visit Department of Internal Medicine in [place], [place] [address] [place] [phone] Marianela Keita M.D. 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 Basic Metabolic Panel, Lipid Panel, S-TSH (Thyroid-Stimulating Hormone - Sensitive) 03/09/2025 9:56 AM CDT - 03/09/2025 11:59 PM CDT Hospital Encounter Department of Radiology in [address] [phone] Marianela Keita M.D. Screening Mammogram Breast Cancer Discharge Disposition: Home or Self Care 03/09/2025 9:56 AM CDT - 03/09/2025 11:59 PM CDT Hospital Encounter Department of Laboratory Medicine in [address] [phone] Marianela Keita M.D. Hypertensive Chronic Kidney Disease With Stage 1 Through Stage 4 Chronic Kidney Disease, Or Unspecified Chronic Kidney Disease; Hyperlipidemia; Hypothyroidism On Replacement Discharge Disposition: Home or Self Care 01/23/2025 Refill Department of Internal Medicine in [address] [phone] Marianela Keita M.D. Med Refill from Last 3 Months Immunizations Immunization Administration Dates Next Due HZV (ZOSTAVAX) 06/12/2013 Influenza TIV (IM) 05/11/2019 Influenza high dose QV(65 ye ars or older) (PF) 06/08/2022,06/13/2021,05/09/2020 Influenza, Quadrivalent, Adj uvanted, Preservative Free 06/14/2023 Influenza, Seasonal, Injectable 04/23/2019 Influenza, Unspecified 06/13/2017,07/02/2016 PCV13 05/23/2018 PCV20 04/16/2023 PPSV23 05/10/2020 RSV: respiratory syncytial v irus (AREXVY) recombinant vaccine 08/29/2024 RZV (SHINGRIX) 04/16/2023, 3,05/24/2021,2020(Deferred: Patient decision) SARS-COV-2 (COVID-19) - MODE RNA (12 YEARS AND OLDER) Fall Seasonal 04/21/2024 SARS-COV-2 (COVID-19) - MODE RNA BIVALENT(Discontinued) 01/31/2023 SARS-COV-2 (COVID-19) - MODERNA(Discontinued) 12/22/2021,12/01/2020 Td Preservative Free (TENIVA C, DECAVAC) 05/24/2021 Tdap 03/17/2025 influenza trivalent high dos e (HD)(PF) 06/05/2024,05/17/2019,06/22/2018 influenza vaccine quad (FLUZONE/FLUARIX) (6 months and older)(PF) 05/17/2019,05/11/2019,04/23/2019,2017,06/13/2017,07/02/2016 Family History Medical History Relation Name Comments Glaucoma Aunt maternal Arthritis Brother 1 Be Dean Asthma Brother 1 Be Dean Atrial fibrillation Brother 1 Be Dean COPD Brother 1 Be Dean Cardiac pacemaker Brother 1 Be Mensaht Depression Brother 1 Be Dean Heart failure Brother 1 Be Dean Open heart surgery Brother 1 Be Dean Osteoarthritis Brother 1 Be Dean Diabetes Brother 2 Pio Dean 3 Sleep apnea Brother 2 Pio Dean Glaucoma Father Edward Dean Heart failure Father Edward Dean Hypertension Father Edward Dean Hypertension Mother Franci Dean Rheum arthritis Mother Franci Dean Breast cancer Niece Macular degeneration Other Pat cousins No Known Problems Sister 1 Mariah Heart attack Sister 2 Modesta Meisel Hypertension Sister 2 Modesta Meisel Other Sister 2 Modesta Meisel As a child (3 y ears old) Dementia Sister 3 Franci Llamaslakesha Dean Paula Relation Name Status Comments Aunt maternal Brother 1 Be Dean Alive Brother 2 Pio Dean Father Edward Dean Maternal Grandfather Alive Mother Franci Dean Niece Alive Other Pat cousins Sister 1 Mariah Alive Sister 2 Modesta Meisel Sister 3 Franci Phan Dianne Paula Alive Social History Tobacco Use Types Packs/Day Years Used Date Smoking Tobacco: Never Smokeless Tobacco: Never Comments:Second hand smoke a s a child Alcohol Use Standard Drinks/Week Comments Yes 0 (1 standard drink = 0.6 oz pure alcohol) About once every 2-3 months may have a glass of wine. [facility] Utilities Answer Date Recorded In the past 12 months has th e [employer], gas, oil, or water [email or web address] threatened to shut off services in your [...] your living situation today? I have a [facility] place to live 03/11/2025 Education Answer Date [...] Orientation Straight 07/27/2017 6: 11 AM CDT Last Filed Vital Signs Vital Sign Reading [...] Mass Index 28.44 03/16/2025 8:44 AM CDT Plan of Treatment Upcoming Encounters Date Type Department Care Team (Latest Contact Info) Description 04/30/2025 10:40 AM CDT Appointment Department of Laboratory Medicine in [place], [place] [address] [place] [phone] Marianela Keita M.D. [address] [phone] 04/30/2025 11:00 AM CDT Nurse Only Department of Family Medicine, [facility], in [place], [place] [address] [place] [phone] Marianela Keita M.D. [address] [address] 06/07/2025 1:00 PM CDT Ancillary Procedure Department of Ophthalmology in [place], [place] [address] [place] [address] Hamlet Espinoza M.D. [address], [place] [address] Health Maintenance Due Date Last Done Comments COVID-19 Vaccine ( season) 2025 07/03/2024, 04/21/2024, 07/10/2023, Additional history exists Creatinine Level (Kidney Function Test) 03/09/2026 03/09/2025, 03/13/2024, 03/11/2023, Additional history exists Potassium Level 03/09/2026 03/09/2025, 02/22, 03/11/2023, Additional history exists Sodium Level 03/09/2026 03/09/2025, 02/22, 03/11/2023, Additional history exists Thyroid Stimulating Hormone (TSH) test for thyroid function 03/09/2026 03/09/2025, 03/13/2024, 03/11/2023, Additional history exists Office Visit for Blood Pressure Check / Re-check 03/16/2026 03/16/2025 Visit: Chronic Disease, age 18+ 03/16/2026 03/16/2025 Visit: Medicare Annual Wellness 03/17/2026 03/16/2025 DTaP,Tdap,and Td Vaccines (2 - Td or Tdap) 03/17/2035 03/17/2025, 05/24/2021 Colonoscopy Discontinued 06/25/2016 (Perf ormed elsewhere) Colorectal Cancer Surveillance Discontinued Hepatitis C Screening Completed 05/19/2018 Pneumococcal vaccine (50+ years) Completed 04/16/2023, 05/10/2020, 05/23/2018 Zoster Vaccines Completed 04/16/2023, 01/21, 05/24/2021, Additional history exists Influenza Vaccine Completed 06/05/2024, , 06/08/2022, Additional history exists RSV vaccine - (32-36 weeks) or 60+ years Completed 08/29/2024 Mammogram Discontinued 03/09/2025, 11/22, 10/30/2022, Additional history exists Depression Screening (Annual PHQ-2) Completed 03/16/2025, 03/09/2025 Fall Risk Screen (Annual) Completed 03/16/2025 CT Colonography Discontinued Cologuard Discontinued IPV Vaccines Aged Out No longer eligi ble based on patient's age to complete this topic Medical Devices Implanted Type Area Scrap Stripper Hand Device Identifier Shelf Expiration Date Model / Serial / Lot Hardware E.G. Pins/Screws/R ods Hardware e.g. pins/screws/ rods Hip Description:ERICA Hardware E.G. Pins/Screws/R ods Hardware e.g. pins/screws/ rods Left: Knee Ocular Lens Ocular Lens Bilateral: Cornea Procedures Procedure Name Priority Date/Time Associated Diagnosis Comments THYROID-STIMULATING HORMONE-SENSITIVE (S-TSH) Routine 03/09/2025 10:32 AM CDT Hypothyroidism On Replacement LIPID PANEL, S Routine 03/09/2025 10:32 AM CDT Hyperlipidemia BASIC METABOLIC PANEL, S/P Routine 03/09/2025 10:32 AM CDT Hypertensive Chronic Kidney Disease With Stage 1 Through Stage 4 Chronic Kidney Disease, Or Unspecified Chronic Kidney Disease BI BREAST SCREENING BILATERAL WITH TOMOSYNTHESIS RAD - Routine (most inpatients and all outpatients) 03/09/2025 10:11 AM CDT Screening Mammogram Breast Cancer HCV AB SCRN W/REFLEX TO HCV PCR, S Routine 05/19/2018 8:47 AM CDT Screening Test Laboratory from Last 3 Months or Most Recently Relevant to Health Maintenance Results * Lipid Panel (03/09/2025 10:32 AM CDT) [...] 10:32 AM CDT 03/09/2025 1:19 PM CDT Marianela Keita M.D. LAB BLOOD ADD-ON Final Resu lt Performing Organization Address City/[facility]/ZIP Co de Phone Number [facility] [address] [place] [phone], [facility] [place] [address] [place] [phone] * S-TSH (Thyroid-Stimulating Hormone - Sensitive) (03/09/2025 10:32 AM CDT) TSH, Sensitive 2.5 0.3 - 4.2 mIU/L 03/09/2025 1:58 PM CDT OWAT Blood (Blood, Venous) 03/09/2025 10:32 AM CDT 03/09/2025 1:18 PM CDT Marianela Keita M.D. LAB BLOOD ADD-ON Final Resu lt Performing Organization Address City/[facility]/ZIP Co de Phone Number [facility] [address], [place] [address], [place] OWAT [facility] [place] [address] [place] [address] * (ABNORMAL) Basic Metabolic Panel (03/09/2025 10:32 [...] M.D. LAB BLOOD ADD-ON Final Resu lt [facility] [address] [place] [address], [facility] OWAT [facility] [place] [address] [place] [address] * BI Breast Screening Bilateral with Tomosynthesis [...] Annual Screening Mammogram ASSESSMENT: BI-RADS: 1: Negative. us Marianela Keita M.D. IMG BI PROCEDURES Final Res ult * HCV Ab Scrn w/Reflex to HCV PCR, Serum (05/19/2018 8:47 AM CDT) HCV Ab Screen, S Negative Negative 05/20/2018 7:56 AM CDT [facility] Comment:Dyspjl-nd-gbcric rat io is <1.00. Blood (Blood, Venous) 05/19/2018 8:47 AM CDT 05/20/2018 6:47 AM CDT us Harper Lowery M.D. LAB MICROBIOLOGY - BLOOD ORDERAB LES Final Result [facility] [address] [place] [address] from Last 3 Months or Most Recently Relevant to Health Maintenance Insurance MEDICARE [employer] [facility] Care Teams Gas Meter Repairer Relationship Specialty Start Date End Date Marianela Keita M.D. [address] [place] [phone] PCP - General Internal Medicine 05/30/23 Dr. Degroot Manager Office Physician Orthopedic Surgery 03/16/24
--- OUTSIDE RECORDS SUMMARY | 2025-03-23 02:24 | XMS_ITS | Clinical Summary ---
Author Organization [facility] Address [facility] [place] [address] Care Team Providers Care Exec. Creative Director Name Role Phone Elroy Engel Primary Care Provid er Allergies Active Allergy Reactions Criticality Noted Date Comments Brimonidine Itching Medium 10/02/2018 Medications atorvastatin (LIPITOR) 20 mg tablet Take 20 mg by mouth at bedtime. Active acetaminophen (TYLENOL EXTRA STRGTH) 500 mg tablet Take 500 mg by mouth every 6 hours if needed. Active amLODIPine (NORVASC) 5 mg tablet Take 1 Tablet by mouth at bedtime. 09/04/2021 Active levothyroxine (SYNTHROID) 75 mcg tablet Take 75 mcg by mouth once daily. 05/02/2021 Active losartan (COZAAR) 100 mg tablet Take 100 mg by mouth once daily. 09/08/2021 Active carboxymethylcel lulose 0.5% 0.5 % drop ophthalmic drops 1 Drop 2 times daily if needed. Active hydroCHLOROthiaz barry 50 mg tablet Take 1 Tablet by mouth once daily. Active Active Problems Problem Noted Date Diagnosed Date Cataract, nuclear sclerotic senile, right 2018 Cataract, nuclear sclerotic senile, left 019 Encounters Date Type Department Care Team Description 03/02/2025 9:00 AM CDT Office Visit [facility] [address] [place] [address] Abad Degroot MD Procedure (L4-5 ILESI) 02/08/2025 Telephone [facility] [address] [place] [address] Abad Degroot MD Musculoskeletal Problem (Back / knee pain) from Last 3 Months Social History Tobacco Use Types Packs/Day Years Used Date Smoking Tobacco: Never Smokeless Tobacco: Never Tobacco Cessation:Counseling Given: No Alcohol Use Standard Drinks/Week Comments No 0 (1 standard drink = 0.6 oz pur e alcohol) Comments No Sex and Gender Information Value Date Recorded Sex Assigned at Not on file Legal Sex Female 11:25 AM CDT Gender Identity Not on file Sexual Orientation Not on file Obstetrics History Last Filed Vital Signs Vital Sign Reading Time Taken Comments Blood Pressure 117/76 01/28/2023 10:08 AM CDT Pulse 77 01/28/2023 10:08 AM CDT Temperature 36.3 C (97.4 F) 01/28/2023 10:08 AM CDT Respiratory Rate 16 05/09/2022 9:26 AM CDT Oxygen Saturation 98% 01/28/2023 10:08 AM CDT Inhaled Oxygen Concentration - - Weight 71.7 kg (158 lb) 01/28/2023 10:08 AM CDT shoes on Height 152.4 cm (5') 10/02/2018 7:30 AM POWER SHEAR OPERATOR Body Mass Index 30.86 10/02/2018 7:30 AM POWER SHEAR OPERATOR Plan of Treatment Health Maintenance Due Date Last Done Comments Tdap 1956 Depression screening for age 12+ 1957 BMI (ht and wt on same day) for age 18+ 1963 Hepatitis C screening for age 18-79 1963 Tetanus booster 1965 Pneumococcal series for age 50+ (1 of 1 - PCV) 1995 Zoster (shingles) series for age 50+ (1 of 2) 1995 DEXA/DXA scan for age 65+ 2010 Medicare Wellness for age 65+ 2010 RSV vaccine for adults or (1 - 1-dose 75+ series) 2020 COVID-19 vaccine series ( season) 2025 07/03/2024, 04/21/2024, 07/10/2023, Additional history exists Influenza Vaccine (Season Ended) 2025 Hepatitis B series for 19+ Aged Out N o longer eligible based on patient's age to complete this topic Medical Devices Implanted Type Area Psych Specialist Device Identifier Shelf Expiration Date Model / Serial / Lot Iol [place] +22 [employer]ecnis Zcb00 - [id number] Implanted:Qty: 1 on 10/02/2018 by Luis Stringer Jr., MD at [facility] Left: Eye [employer] 11/23/2021 ZCB00 22.0# / [id number] / Iol [place] +21 [employer]ecnis Zcb00 - [id number] Implanted:Qty: 1 on 08/06/2019 by Luis Stringer Jr., MD at [facility] Right: Eye [employer] 03/19/2023 ZCB00 21.0# / [id number] / Procedures Procedure Name Priority Date/Time Associated Diagnosis Comments AMB EPIDURAL STEROID INJECTION Routine 03/02/2025 12:00 AM CDT Lumbar radiculopathy Lumbar facet arthropathy Lumbar spondylosis from Last 3 Months Results * AMB EPIDURAL STEROID INJECTION (03/02/2025 12:00 AM CDT) Abad Degroot MD NEUROLOGY ORD Final Resu lt from Last 3 Months Insurance * Guarantor: Chris Dean Account Type Relation to Patient Date of Phone Billing Address Personal/Family Self 1945 [address] [place] [address] MEDICARE PART B HB ONLY [facility] [place] [address] MEDICARE PART A HB ONLY MEDICARE PB ONLY Advance Directives * Full Code (Latest Code Status on File) Date Activated Date Inactivated Comments 08/06/2019 7:32 AM 08/06/2019 1:02 PM Question Answer Comments Code Status Discussion: Not Discussed * Full Code Date Activated Date Inactivated Comments 10/02/2018 7:02 AM 10/02/2018 12:20 PM Question Answer Comments Code Status Discussion: Not Discussed Care Teams Exec. Creative Director Relationship Specialty Start Date End Date Elroy Engel DO [address] [facility] [place] [address] PCP - General Internal Medicine 01/28/23
--- OUTSIDE RECORDS SUMMARY | 2025-03-23 02:24 | XMS_ITS | Encounter Summary ---
Author Organization [facility] Address [address] [place] [address] Care Team Providers Care Tank Wagon Driver Name Role Phone Marianela Keita M.D. Primary Care Provider [phone] Encounter Details Date Type Department Care Team (Late st Contact Info) Description 2017 Historical Ophthalmology [facility] Luis Stringer Jr., M.D. [address] [place] [address] Social History Tobacco Use Types Packs/Day Years Used Date Smoking Tobacco: Never Comments Unknown Sex and Gender Information Value Date Recorded Sex Assigned at Female 07/27/2017 6:11 AM CDT Legal Sex Female 10:24 AM CDT Gender Identity Female 07/27/2017 6:11 AM CDT Sexual Orientation Straight 07/27/2017 6: 11 AM CDT documented as of this encounter Progress Notes * Luis Stringer M.D. - 2017 12:54 PM CDT Eye General CHIEF COMPLAINT CE HISTORY OF PRESENT ILLNESS New to the area, needs to establish care for glaucoma. Blood pressure has been high, related to the stress of moving IMPRESSION / REPORT / PLAN #1 H/O POAG/PXE glaucoma Stable OCT nerve; Good quality for interpretation. Good pattern, good RNFL pattern, good thickness Well controlled glaucoma #2 Cataracts Stable Try new glasses RTo 4 months, IOP check DIAGNOSIS #1 H/O POAG/PXE glaucoma #2 Cataracts CDM Reports - EYEGEN Id: [id number] Status: Fnl documented in this encounter Plan of Treatment Upcoming Encounters Date Type Department Care Team (Latest Contact Info) Description 04/30/2025 10:40 AM CDT Appointment Department of Laboratory Medicine in [address] [phone] Marianela Keita M.D. [address] [phone] 04/30/2025 11:00 AM CDT Nurse Only Department of Family Medicine, [facility], in [address] [phone] Marianela Keita M.D. [address] [phone] 06/07/2025 1:00 PM CDT Ancillary Procedure Department of Ophthalmology in [place], [place] [address] [address] Hamlet Espinoza M.D. [address] [phone] documented as of this encounter Visit Diagnoses Not on filedocumented in this encounter Additional Health Concerns Infection Onset Date Last Indicated Resolved Time COVID19 Pending 11/11/2021 11/12/2021 11/13/2021 1 0:08 AM WHARF LABORER Assessment Noted Time PHQ-9 Depression Total Score: 0 06/13/20 17 10:52 AM CDT documented as of this encounter Care Teams Tank Wagon Driver Relationship Specialty Start Date End Date Marianela Keita M.D. [address] [phone] PCP - General Internal Medicine 05/30/23 Dr. Degroot Stock Chaser Physician Orthopedic Surgery 03/16/24 documented as of this encounter
--- OUTSIDE RECORDS SUMMARY | 2025-03-23 02:24 | XMS_ITS ---
Author Name JUSTINA ANGLIN Address Unknown Phone [phone] Organization [facility] isius Phone [phone] Care Team Providers Care Staging Technician Name Role Phone MD JUSTINA ANGLIN Attending [phone] Allergies and Intolerances Substance Reaction Severity Activated Date Status No Known Drug Allergies ASSESSMENT Assessment Charted Date/Time No assessment available Encounter Diagnosis Encounter Diagnosis Diagnosis Date/Time Status Myalgia, unspecified site [M79.10] 03/07/2021 13 :00 completed IMMUNIZATIONS Vaccine Administration Date Status Reason COVID-19, mRNA, LNP-S, PF, 100mcg/0.5 mL dose 12/02/19 21 Completed Influenza, seasonal, injectable 04/23/2019 Completed Medications Medication Strength Dosage Route Frequency Start Date Stop Date Status atorvastatin 20 mg tablet 20 mg tablet 1 tablet by mouth every evening 03/12/20 19 00:00 active famotidine 10 mg tablet 10 mg tablet 1 tablet by mouth twice a day active hydrochlorothiazide 50 mg tablet 50 mg tablet 1 tablet by mouth once a day active levothyroxine 75 mcg tablet 75 mcg tablet 1 tablet by mouth once a day 12/12/19 19 00:00 active losartan 100 mg tablet 100 mg tablet 1 tablet by mouth every evening 02/24/20 19 00:00 active Problem List Condition Onset Resolved Condition Statu s Muscle pain (finding) [94974978] Active Essential hypertension (disorder) [76825375] Active Pain of right lower leg [521396216555113 ] Active Procedures Procedure Frequency Last Procedure Date Status Extraction of cataract (procedure) [84884753] completed Cholecystectomy (procedure) [46953480] completed Vital Signs Description Result Charted Date/Time LOINC Blood Pressure - Systolic mm[Hg] 161 03/07/20 21 15:33 8480-6 Blood Pressure - Diastolic mm[Hg] 89 021 15:33 8462-4 MAP mm/Hg 113 03/07/2021 15:33 8478-0 Height/Length cm/in 152.4 / 60 03/07/2021 15:33 8302 -2 Weight kg/lb oz 66.22 / 146 03/07/2021 15:33 94833-5 BMI (Ratio) 28.51 03/07/2021 15:33 76857-2 Temperature deg F/[place] 99.2 / 37.3 03/07/2021 15:33 83 10-5 Heart Rate /min 74 03/07/2021 15:33 8867-4 Respiration /min 18 03/07/2021 15:33 9279-1 SpO2 % 98 03/07/2021 15:33 41296-4 Plan of Treatment Plan Description Date Medication atorvastatin(atorvastatin) 03/12 Medication famotidine(famotidine) Medication hydrochlorothiazide(hydrochlorot hiazide) Medication levothyroxine(levothyroxine) Instructions: EVERY MORNING BEFORE BREAKFAST. (TAKE ON AN EMPTY STOMACH) Medication losartan(losartan) 02/23/2019 Social History SOCIAL HISTORY TOBACCO USE Type Status Start Date End Date Last Reviewed Current Smoking Status Never Smoker 03/07/2021 13:23 Gender Identity and Sexual O rientation Type Status Last Reviewed Sex Female 12:32 Social Connection and Isolat ion Description Status Last Reviewed Marital Status Unknown 05/29/2019 10:54 Alcohol and Drug Use Alcohol Use Alcohol Use Answer How often do you have a drink containing alcohol? Never Clinical Notes Notes Name Date/Time Description <label ID='[id number]' style='display: none'>NKPPLq2jUmUYClQpi6VMBUEgUJ6 jew93ZO3jEPseFP2Pv412WA8YoUE0eAIh EV5SbRYcNV7aLjGfPJXgWxJDV9Vfa3FNa 111PJ4AtY0ocz0Eq86fbb9+Km8mrqEuTg qGNzZlAX0nge42YW6hLEiuHL2Wi843WI6 EjAD6bWOkJW8DjAMaQJ9dUcFoFAZkSmZG I3Uev0SYq907NH1RiB9qeb0Du9tiET4+D BNfAU0ftg9xAIZud8ThVCs2WK8Ybn2oF3 K0CZeuC4NVLwPyNSV9yPMkDF1mJ9JFDN6 GlXSmEHFrW8yoZDivAUWqAN8Qa911OPg9 UD2RZTTxVARhBr7CKZXnUANqPi1+DS9YT 3PxYKJ4XAo2Mx6XGa7PZZ0er9ZxAYJwLF PbDlpVJNjBT3JumQjgZBqTM5Ftc9H5Z3C eQGFouQCrccDgDiJpG55huVHnsLgCG6Gg VOS3f1JaNXXdIU8fjCSgr7EchR2eeNKhR z2jsCF3UmvrCh1gDudDSx8LQD4rr0RsUD NcYUWxKvuORTiRX8L8jZBjR0RryNLwx6o QR7MgS3BsJSBbTDTGCL5+DHBnEU2ijz79 BHDyl1CzXWt9QU2UpKCzVR7GVBztkm1sK 4ecghTnLSgcTPRQUKexEUQACG8FD9VraC 85TNDCWk4ESI2eg3PiYBnrGFPiYmgAXBp NW0G5sXRwD8SiF8AKQ4CdqpXczKX7OFNx Kk8lDZUxkXADs8arHqLtPLR5TBAkFBM1Q YGoBUGdBU6SQIMkmZHkIMKbPkJdNKBLY1 NvbnRlbnRzIDggMCBSDT4+FAJzAU4lpb6 1YAUtu1QkUXr6VW4SpHg9SHPoQltkiQGO WRTnUSWfGFVqV0TaUMMpIJhEH8ceoti3n BLdYcuuYDnEGt9Ua0FxFHCsPYwhmEtbff S2Ef0C/yI0bJsnbyk0k6m095Uoi3v4Msw lv/cpSFTJhgoNM0N3st2XplPAnNy8CxnC TqWyyXIPDhrdjUajAcxvZwu+KEw7A803+ /ThmzO2+J2u1DOgB4ElojB53LdbftWy5d 1b5zQzMAuTrcCT340EQVWeiHTGJfSvWzE wBRbRHF7pafTUsxn4GYKyPexaDpUH48bt 5hjJU+NzyCAVV7AcUZBYAGs5eIIMLENA8 GQkDPFUI8lUIZrNayEEDkhSo8U1EKUvJZ QDYJSCQrKBAYc2gYJLXULzodONolB8DIX W9e2uZahLB0PpbqbiZ7PlP3CPWQKbRECF I3k6LBcMEHIoyDAJ6qVQRfbUAsyjDUX9M qHVujLfO2c5QLCKLUmzsmEJYiUxst8DFb C+SW3A0fBQY1HOTiVSfYYLCTMnjvXYGM2 ZpQVQRT6cBvGcah6cNe8Y3OXfK7IWujsN bMGSzVMvLbTHU7xOKCWcZWrgNirmUGB13 ozBASdRkPNvZYOe9wKANaiiTToqwjUhLS UjWr14odFKAbQTd6DeEnF0AGRDPN0ruOf Ta0kG7CH41okcNJDf4URdS5KbuKQFL6iN CJ+RHTCuESU3yZmVlnHAxNGokWHnDW81F tAfESMWpJ2BLESH4puNPMxHbNnXcmDhRV VdsMWrmDCjFRl1ip7DMOXDBW7fQOQ76CI QpKGYFUkqMge7xXnFRcDgYSPeWtg7eoY6 CY8tQYlRhSEkxiIVi6pcAwrhVdHUykmlY 12FL6UP6YReOAZIABZ0LHB3BDtHGBXy4A 84xq4pwIvOkCYCY8WAjK90PErZcagFENQ CUeKnjrin3uuLmnWXrBCCinkUWycFzaKD n6epEhDAgPsrkPLPE0MsSAMGv5OGx7Gym e9uPErAEeV4AYpUn94hJvCGAHDfflkpBu NKP00swPmIubLrMuqLmZO006OTqqxI+DE WEUFEULuGpV+18QUZEocMDizsMJHdUuuO wrvlYxfAWRyfL5JmBFzbOx90fT0P5Kb0E 6N1DxanSZNWrfzg6YmjOzWGJ/6xrGN7vT wDH1i1PY9/mzJsqkfPZ9XLx1qJRJ8SW73 A2Lqo1arUaCT2Y7BU2C6gDBC0RIbSHY3u UrqB5s9ekCQroBHbWyBgQ8VRsbY9iRGpS wmUYIOT3PbUMgvtf9ai89L2gFWOdrRQBc MXR2cDeeu8ArH2QnniM2d3YgxI4QvED0I qFkn6vqDhymOOUvnBZFDG6yiahJjbc9K8 9Q2FQj9g563V1HSAnvJsucy/i8HGpNtAf QlQ7ZIOMJ7tNK0nKZhgsFyo5OOKZUCh7b uCW1F3pbIFDXqw3AFVEpvu1DyOJQDEuCU uLBi0IbvWtFKQyuPjlXCYDU5tjGMeRnth /ZLfKXTGoXUCe25LJkxDdcrtkMKhnSxcX dgkcSwtLDLV1IrH5Y6RwckXoVGlMegTLQ CF0VuFq1iU1osA8yrTmhQRfXixlqqTJmu HG2CUlXrIGhIKs525K95ca1eapx3gMqow utQGOtdUyTJhDRwnJ12dBPEKlGNaHOXLO s89MiaB4ORtPJKisCuZUNq5tnAISWT3xm bCEULmRLIUGHABVts2zLrmvmvuvk4ArCu gKhSIxShxN8KlVuTyZlqSPpZvPFTTWWlQ 9LiGA7MVOLiWhuUocHb7fVcJJLwrVH4KD CDKbIaJsWj7HNGNyIB+FEAkWgXpCtEkTV oFbmN6XyHfjEiiytgryWO1vHSwWQyqMDX pWaNQ5HSSEQPGZEwMWj7HDQ9yQkHOeQUf WxmZUrEwJoDgBnfeyRKRzgGISMfLNrxoN G3RcSahS5Z8PzNBPvKatIvtXoieBzE4cj 9DF0v0eyzmtdVgF07E5lw1UExklRJXqbL UtFLO23v2vWVGEmLzMJJMwWvwLKmnV9uL 9X12kHOhgRvbGIPyzvrR6ffx4D9sIZs+a zq9f8OJgqCoEFfEAPk8k7CqUXOgJeEwGW f7q3M9nDinaU+YyraATNKUVQDBVVPpJEt ILsUmQVummnHRijBkNuKfjXB8iRYho9Fe N4xfn0BeddmIc1lWrRGRLlvyEOjAQWAos kzVFUooGgWr/OSKIYawsoHA1ovXVRE1C4 KJgkPhTM4uTgTOwSy9X0zg33XWduaj6hz NyMf57n9Zo8DSCWUbGDMEQBOtoEMSLlg5 JZNdjlb8rESYLNGvKVBeoIeJPLUSMDtIJ OLjIUkuLwWECD4i1iYUotaKQuWg5165KZ AZkFSQOzEgLMrKd9BNgrnuHy0TKvFGABe W7Hojx6GCcuwkU9TF8Ws7mkCevccEor7K fIJB9MQHlgkSRVEa2vjNlAtR2Q5FeFAMn iK1RMxMSCsNxx0yBDQL+RQsJAMEtpLIVF WyP1aA05kyAXRr8mSFwYoXF+hYgmf/s79 1/+fDN2f/Wua6bLgw4V8472pJ0ztQw/ji rwTG4uM/a2/CCEaM3or/jkr6CJskt2E0z CRQp7V0/YSw2U2ZZIQNHafHm1sDVg5eWj tOK4Va0akyTo6VmMi622W1Xo8akTdY0dd d9gRUO9yc1gQ5dFzc4uX+uRb6zgyeM8qx gwkgm3aIp6KKflJkn5rBnfh0IzWCopWC1 6fhnI3KSamQ91PVbX8asf2i0nQwNz1UGw +bw3G3f+x6aC/HaBgM6Kcoz0oHlm/Xh3p 7HPqFHDij+bfr9bY+ROphiRzuJyXkGl8A K5zyBxKu0+6pLW/dlAbfn9ZWyABLfMuH1 4QWmhdmvKh1bvA6UkxVyst6sPasGqDyae ugMwoD4mEKpAAhj4EQiTEvw9KLx73VB09 jGM2d0a4lvLb7sjdNkdice/0e55s3o7Fu TyzgaVeh8uLOWoCRYaivGTs8n4nAUfuJU isvKrIn9b/bqNvciNOL1XF4mM2j5MYItx vmTPOlzWstocVg7jqIR8gmsr/uVw+b1bK Tg0I2TNjyfhfvSz274nSIJlcqqY7bdacD sa1Sq4U4K2Qin9Tx2qk18r6mpbaNi3T7N U2xxUjkbhP/4Bv5Tr4ERAc1sVpQ70m+DD s1+dhgLh9BCfrliESY+I/H5xZx3P2+KCs mboeqdk3AwqBWx9AV7XBSmDQjnD/OloVe LIY/IPlv//f3M+xaS86lhAoYiye+ClpbL 5ttJy3Ibk6z+RClq7566OFU8EC0Fjy/9u pu2Ae0LWfgv0962d/mulS7zBKCwDeiPJF A2nrb/P/1mA7rJPyObVms8M/RdVhNRg9g lcowUEu6BJitk6+Nefg3g6Vw7304ElQJD Wnm/pk7O7UAz0p+FNpErXz+pjZmZf7sMQ 96bqNhjnS0rr9JzzHvKnd4J6/DIoqaSDX twOplxEuW7VBPhRko8QjSsh1szdgPGIIO 28gpMAtUvr+RZZQg+qG3mlFK2eR9Ib3n7 XDeCq4z9Mjn1cq/y025J20uk/0zpZ32jI p0L9qBj/UqenMmoui82F2cRQsBBSLlhye RHGNyWHYSXhjYWXBu4du8xY5Du/K0dXyH 2idw10QFTZ5KtHzodqVrOjYOFZrlSHQ6v EjR0t6D0BEFl9giJcsHVQOXUYktbGfjLL Nlvj1pE/aWDXbpyhMmvK1zwoKGktp84kB F7XcvVZkN5EFRrDe6bdZ/DBZdTCqsIbGc ILKwJ7qkT3itwxfe84xCPe5AcXYUJ6Jon 1gFZe9BK5V0BtLOmN+Am/Z1xDWp6q0K/D NYTPNTwUZEiObtNnuieehDsrimPr7/QUT 07shGeodMgRFsP/8jQ+bcvAS4GtHz7bVU M9e6+8dre7OzlT4BZeSiDpf8SkP6+KwsC Y93Sp/WdLIOpW1qWYwr60Y0dH2/aq4yJs HNunXUBjGu3bF1NwDQ47gjn0GekylHTpS gs7lnq3nOBWvv4NlE1vvKc9xk9O4WgnWC 3cZwvvd2Sa09Wq1puG2C9qFXoVgWjqL1q t3kYlc2fyEKpQBvGgPChBL7rSO2oGsQxY tZwooLmz6Ehj6233STr31ZWaMoctSD7Uq ULp9sCHkUgb78DuIkgCiioVsxrQUn/Pzj 4J9lJXaAbpqxlgTSw7ixVB34hoMipAPed Lm0TgbsJlZnmrolebxEwGPka97zFzp2Od nrxhbTBArXRqaU1GySjllChQvn7ClGZHQ 95TFdu+vk9idgEog9mYZUOJVELVFPf/W0 VrRvRdI1pZkfvUozz3j+APjp0MxiHuRB5 /qQ7RBF3O8EdH4z9321ozOTTHznyBSXvy WSZtzFcgtOKTsu1BiltjwpY8FotNRqy64 dkBvs6/6FEc5y6YoCMRVhATR0hu+a/dXD 2bpFi5HzGOiuENTJxQ8TtE9lt9F5P+wTZ Vh/DFRK1h/pKoNqQkh7YcD3/dkv4n79Si +2D9r9gW4meRtVIbzwVvhWS0HTEaCVhJ4 DZQr6XIVr+yJC7rRCrM7t4mzUzogEzEs6 VUHTL2osHqtswIM9uZsBJaLjRqhdtZZQl 4NRlMQpOnxzXKM2/hksURicNoypqq/TBb nVSEGW9BRVV8YTVrOGzUXFoCUsJZAFSDX b445eTmXdi6kgdhjmHNwNf6a6vwnjRIQe BkB5ZeObac0TF3SOlv3nZfIOlKXeiM1NA jvLqlqK/fJ4TAN33kU3884dhJBasSHMbM Rd/ogh5WPjErZXIUbCkTJMqyMGUN1/gyU GvgOAAbI2Uuiy/JpoI7Mh89rKhSZ5GpPM HahEzL34YYIytohJIulMpXUpy7SYBv1wr caUeY5AqQjp8w5HHIUirzNpPcf0SigxJa SKTbCFNuEDmd6CI0BQcp2smnjHWiTT3gr hwpYCw7tyuhCHTzOE1yqDTqb/SSPwLX7l RlXnSzrjta/531J5vcPZQt0ZhxhOH8o+G TkU5pl4vWxXc6cO2xevTIG3YOjcuc4zg6 2HVsUVGpsIfc1r0ZArk6EOlzQ0RZOUpsN YQPf1aqIAt2IleFqPgWhnngCs0Su4fOr+ 5XCx+29++YhQHVk+Iso7o+KG55/DEuWja mUelUb8SNH++3nTCF25VOvgW2aEKAqERv KvSDUPfj8YUNAIkhaNpweij5GxH5hE1c3 b6xBGhCz/35VM+/OFn4mlJ7C3U0l6Bg2K rou+u2v3HTb+9l/7wyZZt//e/LHa+Mt/y nczu/WPpqCRT4Jrize+3r558/9ks6Qfd0 DIoFeugTUihBaBU388+KK/LC75EA1176+ 4za7lrUAjDg/wg/ai3YyPu4rGNe5US4bX M7+7+Dlt32g90kecuWWdlCxc82VA+Vhvr +p5jDKsgscJB2ypz4oth5LfLHXt1C/h8c q5r15sN6Eu3h5/0xWqI0fIj6lxTehIpOX Ux/oopol7hmcVFuYqXY5u9iH/jWBfNOqs u7TXO0gh744u+/KpLJvPs8CWbL29s4T7Q BuaZx8Hf31l5y9qV5fxUObojGH2rcGrif Ai1zN/atb+woz5l74t0o33m/4If0mgsie P/ahx4QtKytArzFeXWzq4q2IaUGad7wrx Xz/3qxYajWkVC7/ugaB6DCgonEW7+biut zu/7uS2riuRRJIuC6qxZqNDl+/mrL5pOs YPrvrV/fHI6gV7D8Clwqb29vJi/cXLaOx SlP2IG2Lub9Y8zrSm6kjRB/t6UCZbAXaJ mBib2Q6b0k/1HmEz9577GJH/jN3pGeyoR Ido912xBW1aB/XhR9a6F/x4wNRz9vJNIm Ql3nxAj2R1Ejb07l3jW/z3Od3A60B7fc3 qD9K5k5N/H2b7n3f0/rp6X7IN50sBWLIV se++3h+ag32b6/0zf/hLyWuwuhS011/7+ q8QreM6M+Up6icpc7HDEpuoGUywgl2vwt XitYHoOO0YRD5ep3HnVOjcOINoPdfOQBc HR5W9lSNmO2ZpY6UXE0GzjzRrsJE3OGTj Xa1fMKXdgVXQp3nyNpYuBHJ3ATXsTMN2F MZdDWCyMC8YITEjlEAbEZGvJeBePSLHY3 NvbnRlbnRzIDEwIDAgUg0+Rm5hzcNpCmj JUOKzAMSzCkmUEMhKP5NofTRlii3NxCC1 LSJfD20nCL8NDP6nyDvmQfD4CO7UOX0se QpzRDf8Rk8+Kp1ecVXkKH4EnHamjWqpgr AMQE+lV7GARnuhqD2ivGvLeCfptPQW8TW Ooe8gj85PiQnRSUQc8nGQQP6UUKEXvkQK G5bxAtDdVNR69DvtYTZwdH6gjPSSO+g7h Bn+NAAwhtTocpHMqOuEwI5LKExBLBd+xt IFUIX0dRmhN1X7haMyyKNXqTUoL/z9ps9 Ap0x+5nekV6aKg0kTHWy+uWbrNHaLJjDE b5PCSW19f0epLiDVPD5Ekx4nuVpdk8QTk DFan1wlB5DC6XRudcQJMTA1UnXnei/ftr SNRCZstV04LdbiimvjetcqmlsHNJ8h+36 KJXuxCZJnR/TCcSauSA9xmaIpeSRjAF0N AL7yk1EfEDggGPPDGMKfWM8hTTOoLDKbU RMbIWP8TXX2MRFiYQVsNPVjPAKpPQDqGF LdFQIoeuDJGKTuNVWjXGW6GtSlUPFxPYZ wTJ7fSWMjJDBoSQt9HNKnMQMxJV7sRIYe MDAwMDAyODkgMDAwMDAgbiANMDAwMDAwM FW3KIZbPCBsYLKvCN4uKVGbSMVzIZPsQN CfYMOmRS9pTKZzFJXgGAD3GLIdWTEgCJJ vdyTIBKUbSAXnNANwWYGbAJRlHFXeYJ1u TXHjZHF1DST0UYRpYEOxDW2iBJNsMXUqP JRmFnvaGKXgYHZutxGDoCAjzDxekc97LZ 7iF2g8HSPsNDWSR4Owu0TyCSZpHRSdHS2 JbmZvIDQgMCBSIA0+Bt8ppGAfuGliMLPY XIE8Ws6pXLJIBj==</label><a href=[email or web address]: opennotes('[email or web address]') >Clinic Provider Note</a> 03/07/2021 14:00 Signed Date/Time: 03/24/2021 10:21 Signed By: JUSTINA ANGLIN Entered By: JUSTINA ANGLIN <renderedtemplate template= 48><div><customfilter class=healthlandplugin notefilterhistoryid=[email or web address]><span>03/07/2021</span></customfilter></div><div></div> <div><strong>Chief Complaint:</strong> RT leg pain</div><div></div><div><strong>History of Present Illness:</strong> 75 yo female is here for evaluation of RT leg pain. Pain is chronic and intermittent. No recent falls or trauma. No nausea/vomiting/diarrhea. No recent long distance trips.</div><div></div><div><customfilter class=healthlandplugin notefilterhistoryid=[email or web address]><span><strong>Vital Signs: Today</strong>:</span></customfilter><div></div><div><customfilter class=healthlandplugin notefilterhistoryid=[email or web address]><table border=1> <thead> <tr> <th colspan=13 style=text-align: center;>Vital Signs: This Visit</th> </tr> <tr> <th style=width:61.93116167797242so; text-align: center;>Date/Time</th> <th style=width:61.49133688288697kn; text-align: center;>Blood Pressure (mm/Hg)</th> <th style=width:61.91491646364801iy; text-align: center;>Heart Rate</th> <th style=width:61.28511467808521hc; text-align: center;>Respiration</th> <th style=width:61.61669136336848nv; text-align: center;>Temperature</th> <th style=width:61.04365987325346so; text-align: center;>SPO2%</> <th style=width:61.81337828152520ct; text- align: center;>O2 Device</th> <th style=width:61.05560518187504sl; text-align: center;>Blood Sugar (mg/dL)</th> <th style=width:61.33118623215943wx; text-align: center;>Pain Score</th> <th style=width:61.09801713825464zn; text-align: center;>Height</th> <th style=width:61.19761139276557on; text-align: center;>Weight</th> <th style=width:61.04180721967836pg; text-align: center;>BMI</th> <th style=width:61.80240777784299zn; text-align: center;>Head Circumference</th> </tr> </thead> <tbody> <tr> <td style=text-align:center>03/07/2021 15:33</td> <td style=text-align:center>161/89</td> <td style=text-align:center>74</td> <td style=text-align:center>18</td> <td style=text-align:center>99.2 F Temporal</td> <td style=text-align:center>98</td> <td style=text-align:center>Room Air</td> <td style=text-align:center></td> <td style=text-align:center></td> <td style=text-align:center>60 in</td> <td style=text-align:center>146 lbs/oz</td> <td style=text- align:center>28.51</td> <td style=text-align:center></td> </tr> </tbody></table></customfilter><div></div></div><div></div></div><div><strong>Ph ysical Exam:</strong></div><div>HEENT: EOMI</div><div>CV: normal s1s2, RRR</div><div>M/S: muscle tenderness diffuse of RT LE, no joint tenderness</div><div></div><div><strong>Assessment and Plan</strong>:</div><div>Myalgia/Muscle sprain: Will take Aleve 2 tabs BID for 3 days, Tylenol 2 tabs BID, and Magnesium oxide 400-500mg daily.</div><div>HTN: possibly reactive. Will monitor at home, and address with PCP if persistently elevated.</div><div></div><div></div><div></div><div></div><div style=text- align:center>END OF REPORT</div></renderedtemplate><div></div> Transcribed Documents Name Date/Time Description No transcribed documents jarrod ilable Care Team Members Primary Care Physician Name Contact Role Start of Care No Primary Care Physician av ailable Consulting Physicians Name Contact Role Start of Care JUSTINA LEVINE Specialty: Fam luna Medicine tel:[phone] Physician Personal Care Team Name Address Relationship No Personal Care Team availa ble
--- OUTSIDE RECORDS SUMMARY | 2025-03-23 02:24 | XMS_ITS | Encounter Summary ---
Author Organization [facility] Address [address] [place] [address] Care Team Providers Care Sales Outfitter Name Role Phone Marianela Keita M.D. Primary Care Provider [phone] Encounter Details Date Type Department Care Team (Late st Contact Info) Description 03/10/2025 Results Follow-Up Department of Internal Medicine in [place], [place] [address] [address] Gisela Peng, Huey-Tara., M.S. [address], [place] [address] Basic Metabolic Panel, Lipid Panel, S-TSH (Thyroid-Stimulating Hormone - Sensitive) Social History Tobacco Use Types Packs/Day Years Used Date Smoking Tobacco: Never Smokeless Tobacco: Never Comments:Second hand smoke a s a child Alcohol Use Standard Drinks/Week Comments Yes 0 (1 standard drink = 0.6 oz pure alcohol) About once every 2-3 months may have a glass of wine. [facility] Utilities Answer Date Recorded In the past 12 months has [employer] electric, gas, oil, or water company threatened to [...] living situation today? [facility] 03/11/2025 Education Answer Date [...] AM CDT documented as of this encounter Plan of Treatment Upcoming Encounters Date Type Department Care Team (Latest Contact Info) Description 04/30/2025 10:40 AM CDT Appointment Department of Laboratory Medicine in [place] [address] [place] [address] Marianela Keita M.D. [address] [place] [phone] 04/30/2025 11:00 AM CDT Nurse Only Department of Family Medicine, [facility], in [place], [place] [address] [place] [address] Marianela Keita M.D. [address] [place] [phone] 06/07/2025 1:00 PM CDT Ancillary Procedure Department of Ophthalmology in [place], [place] [address] [place] [phone] Hamlet Espinoza M.D. [address] [phone] documented as of this encounter Visit Diagnoses Not on filedocumented in this encounter Additional Health Concerns Assessment Noted Time PHQ-9 Depression Total Score: 0 07/09/20 19 9:57 AM CDT documented as of this encounter Care Teams Sales Outfitter Relationship Specialty Start Date End Date Marianela Keita M.D. [address] [phone] PCP - General Internal Medicine 05/30/23 Dr. Degroot Crab Meat Processor Physician Orthopedic Surgery 03/16/24 documented as of this encounter
== END 2025-03-22 11:50 | disposition home or self-care (01) ==
LOC: OP CLINIC 11:50
PROVIDERS: PCP Internal Medicine; Visit Provider Surgery
DX: Z12.11 Encounter for screening for malignant neoplasm of colon (principal); Z86.0100 Personal history of colon polyps, unspecified; D12.0 Benign neoplasm of cecum; D12.3 Benign neoplasm of transverse colon; K57.30 Diverticulosis of large intestine without perforation or abscess without bleeding
CPT/HCPCS: 00811; 45385; 99100; J2405; J2704

== ENCOUNTER 2025-09-03 09:45 | Outpatient (RCR) | payer MEDICARE, OTHER, SELFPAY ==
--- NOTE | 2025-08-05 13:07 | PT.OPEX ---
PT [place] Outpatient Eval PT [facility] Outpatient Eval Start: 08/05/25 10:11 Freq: Status: Active Protocol: Document 08/05/25 10:11 (Rec: 08/05/25 13:03 MRS [id number]) E-signed By Mary Lou Reddy DPT Physical Therapy Outpatient Evaluation Insurance Information Recert Due Date 11/05/25 Insurance Name Medicare B Insurance Medicare Information/Comments Medical Diagnosis Right Hip Bursits/ITB syndrome Treating Diagnosis Pain in Hip Right M25.551 Stiffness of Hip Right M25.651 Referring MD Doug Hammond MD Subjective Subjective Initial subjective: Chris presented with c/o right hip pain when getting up from sitting. Pain started about 2 months ago. 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 Precautions Therapy Limitations/ Not Limited Systems Review Objective Range of Motion LE ROM (R/L):? WNL, HS length on right less compared to left but still at ~90 degrees, decreased right hip ROM compared to left but WNL Strength LE Strength (R/L):? -Knee Ext: R: 5/5, L: 5/5? -Knee Flex: R: 5/5, L: 5/5? -Hip Abd: R: 4-/5, L: 4+/5? -Hip Add: R: 5/5, L: 5/5? -Hip Ext: R: 4-/5, L: 4+/5? -Hip Flx: R: 4/5, L: 5/5? Palpation Muscle tension palpated in right TFL and proximal ITB Posture Left hip and patella elevated compared to right. B pes planus Other/Pertinent -Hip Abd: R: 4-/5, L: 4+/5? Objective -Hip Add: R: 5/5, L: 5/5? -Hip Ext: R: 4-/5, L: 4+/5? -Hip Flx: R: 4/5, L: 5/5? Hip Labral:? -LEXY: positive for tightness compared to left, no pain Functional Test LEFS: 48/80 Performed & Score Assessment Assessment/ Patient is a 80-year-old female presenting to physical Impression therapy for evaluation and treatment of right hip bursitis and IT band syndrome. Per pt, ITB symptoms on left have resolved. Patient presents with impaired right hip range of motion and strength compared to left as well as decreased functional mobility and pain. These impairments are limiting the patient's ability to transfer to and from sitting, sit for prolonged periods of time, and repetitive use of stairs without pain. Patient appears motivated to participate in PT and presents with good prognosis to improve mobility, strength, proprioception and return to functional activities with skilled physical therapy intervention. Primary Functional impaired right hip range of motion and strength Limitations compared to left as well as decreased functional mobility and pain limiting ability to transfer to and from sitting, sit for prolonged periods of time, and repetitive use of stairs without pain. Plan of Care Rehabilitation Good Potential Physical Therapy STG's to be met in 2-4 weeks: Goals 1.) Pt will report a decrease in pain to 2/10 or less at worst. 2.) Pt will report 50% improvement with sit to stand transfers. LTG's to be met in 6-8 weeks: 1.) Pt will demonstrate 5/5 strength MMT in glut max & glut med to improve dynamic control with SLS activities and gait.? 2.) Pt will report 75% or greater improvement with sit to stand transfers. 3.) Pt will independent and compliant with HEP. Coordination/ Referral Source Communication With Treatment Plan/ Gait Training,Manual Therapy,Neuromuscular Re-ed, Direct Interventions Therapeutic Activities,Therapeutic Exercises Frequency/Duration 1-2x/week for 6-8 weeks Patient Will Be Completion of LTG(s),Skills Plateau,Independent w/HEP, Discharged From Independently Progressing Therapy Evaluation Billing Untimed Code 30 Treatment Minutes PT Eval No Charge No Complexity Low Certification Information Initial 08/05/26 Certification Date Ending Certification 11/05/25 Date Provider Signature Yes Required Provider Signature POC & Medical Necessity Shows Agreement With Physician NPI Number Write NPI# Here Physician Comment/ : Change Physician Signature Please Sign/Date Here & Date Requested
== END 2025-09-03 13:12 | disposition home or self-care (01) ==
PROVIDERS: PCP Internal Medicine; Visit Provider Orthopaedic Surgery
DX: M70.71 Other bursitis of hip, right hip (principal); M76.32 Iliotibial band syndrome, left leg; Z51.89 Encounter for other specified aftercare
CPT/HCPCS: 97012; 97110; 97161